=== PATIENT | male | born 1975 | race Caucasian/White ===

== ENCOUNTER → 2017-03-25 | Outpatient (CLI) | payer OTHER ==
--- NOTE | 2017-03-25 09:04 | CT ---
EXAMINATION TYPE: CT lumbar spine w con DATE OF EXAM: 03/25/2017 COMPARISON: 04/26/2015 HISTORY: Lumbar neuritis CT DLP: 560.20 mGycm Automated exposure control for dose reduction was used. CONTRAST: CT scan of the lumbar is performed with IV Contrast, patient injected with 100 ml mL of Omnipaque [address] of the lumbar spine was performed. Bone and soft tissue window settings are submitted as well as coronal and sagittal reconstructions. L1-L2: Normal disc space height. No disc herniation protrusion or central stenosis. No facet joint arthropathy. No evidence for foraminal encroachment. L2-L3: There is a broad-based disc bulge creating mild bilateral neural foraminal narrowing. No spina l canal stenosis. L3-L4: There is a broad-based disc bulge creating mild bilateral neural foraminal narrowing. No spina l canal stenosis. Mild facet arthropathy and ligamentum flavum buckling. L4-L5: There is a right paracentral disc herniation superimposed upon a broad-based disc bulge that e xtends caudally approximately 5 mm, extends into the right lateral recess and into the neural foramen . Additionally cephalad orientation of the superior facet of L5 due to the anterolisthesis impinges u sherine the L4 exiting nerve root on the left and right creating severe bilateral neural foraminal stenos is. L5-S1: Laminectomy defect, spinous process resection, fixation rods, and pedicular screws are again s een at L5-S1 with persistent grade 2 anterolisthesis of L5 on S1 and partial osseous fusion of L5 wit h S1. This results in moderate bilateral neural foraminal narrowing. Spinal canal remains patent seco ndary to the spinous process resection. Sigmoid diverticulosis is incidentally identified without pericolonic fat stranding. IMPRESSION: 1. Right paracentral disc herniation with caudal extrusion of 5 mm and extends into the right lateral recess and neural foramen. This disc herniation in combination with superior L5 facet protrusion int o the neural foramen secondary to the grade 2 anterolisthesis of L5 on S1 both create bilateral sever e neural foraminal narrowing impinging upon the exiting L4 nerve roots. 2. Postsurgical changes of L5-S1 with persistent grade 2 anterolisthesis and partial osseous fusion o f L5 and S1. 3. Sigmoid diverticulosis.
== END | disposition home or self-care (01) ==
LOC: RADCTMAIN 07:46
PROVIDERS: ATTEND Family Medicine
DX: M51.16 Intervertebral disc disorders with radiculopathy, lumbar region (principal); M99.73 Connective tissue and disc stenosis of intervertebral foramina of lumbar region; M43.17 Spondylolisthesis, lumbosacral region; Z98.1 Arthrodesis status
CPT/HCPCS: 72132; Q9967

== ENCOUNTER → 2017-09-25 | Outpatient (CLI) | payer OTHER ==
--- NOTE | 2017-09-25 09:40 | MR ---
MR lumbar spine wo/w con Low back pain, [id number] Gadavist Multiplanar, multiecho imaging of the lumbar spine was obtained without contrast on a 3 Marva magnet. REFERENCE: CT scan of the lumbar spine dated 03/25/2017. FINDINGS: Paraspinal soft tissues are normal. There is a fusion of L5-S1 with a persistent grade 1 bordering on grade 2 antegrade listhesis of L5 o n S1. There has been an interpedicular fusion at L5-S1. Alignment is otherwise normal. Cord signal is normal. The conus ends normally at the level of the superior endplate of L1. At T12-L1, no definite abnormality is seen. At L1-2, there is hypertrophic change and capsulitis within the facets. At L2-3, there is a mild, bilobed disc displacement. Intervertebral foramina are well maintained. The re is mild hypertrophic change and capsulitis within the facets. At L3-4, the intervertebral foramina are reasonably well-maintained. There is hypertrophic change in the facets. There is a bilobed disc displacement. There is mild trefoiling of the thecal sac. L4-5 There is mild, bilateral intervertebral foraminal narrowing, worse on the left than the right. T his hypertrophic change in the facets. There is a diffuse disc displacement. There is moderate centra l canal compromise. There is bilateral lateral recess stenosis. At L5-S1, this level is fused. There is a grade 1, bordering on grade 2 spondylolisthesis L5 on S1. Spacing material has been displaced posteriorly and is abutting the posterior edge of the S1 vertebra l body. It is difficult to assess the intervertebral foramina due to geometric distortion. There appe ars be intervertebral foraminal narrowing on the right and to a lesser extent on the left. There is a bony ridge posteriorly secondary to the spondylolysis and this is projecting into the spinal canal c ausing mild to moderate central canal compromise. IMPRESSION: 1. DIFFUSE FACET ARTHROPATHY. 2. POSTSURGICAL CHANGE. 3. FUSION OF THE L5-S1 LEVEL WITH A PERSISTENT GRADE 1 BORDERING ON GRADE 2 SPONDYLOLISTHESIS OF L5 O N S1. 4. VARYING DEGREES OF CENTRAL CANAL COMPROMISE, MOST MARKED AT L4-5 AND L5-S1. 5. BILATERAL LATERAL RECESS STENOSIS, L4-5.
== END | disposition home or self-care (01) ==
LOC: RADMRIMAIN 08:32
PROVIDERS: ATTEND Orthopaedic Surgery Orthopaedic Surgery of the Spine
DX: M48.061 Spinal stenosis, lumbar region without neurogenic claudication (principal); M43.16 Spondylolisthesis, lumbar region; M46.86 Other specified inflammatory spondylopathies, lumbar region; Z98.1 Arthrodesis status; Z98.890 Other specified postprocedural states
CPT/HCPCS: 72158; A9581

== ENCOUNTER → 2018-12-02 | Outpatient (CLI) | payer OTHER ==
--- NOTE | 2018-12-02 11:13 | XR ---
"EXAMINATION TYPE: XR lumbosacral spine min 4V DATE OF EXAM: 12/02/2018 CLINICAL HISTORY: Low back pain and surgery TECHNIQUE: Frontal, lateral, and oblique images of the lumbar spine are obtained. COMPARISON: 05/11/2011 x-ray, CT dated 03/17/2017, and MRI lumbar spine dated 09/25/2017. FINDINGS: Pedicular screws again traverse L5-S1. There is persistent grade 2 anterolisthesis, surgica lly fixated. Multilevel facet arthropathy is seen. There is a new compression deformity in comparison to the MRI dated 09/25/2017, the most recent examination at this institution. As has vertebral body h eight loss of approximately 25% without radiographic evidence of retropulsion. No additional compress ion deformity is seen in the lumbar spine. At least mild neural foraminal narrowing is seen at L4-L5 bilaterally but suspected to be moderate. No dilated bowel in the overlying abdomen. IMPRESSION: 1. There is an age-indeterminate compression deformity of the L1 vertebral body with vertebral body h eight loss of approximately 25%. No radiographic retropulsion. This is new from the most recent exam of 09/25/2017. 2. Degenerative disc disease of the lumbar spine, surgical fixation of an anterolisthesis of L5 on S1 that is chronic, and at least mild neural foraminal narrowing but suspected moderate at L4-L5 as see n on prior exams. A Yellow level critical message alert has been initiated for Grabiel Jean MD via the [employer] 36 0 | Critical Results System on 12/02/2018 11:11 AM. This message alert has been sent to Grabiel Jean MD via the preferences provided by the clinician for the receipt of Radiology Critical Findings. [facility] ID [id number]."
== END | disposition home or self-care (01) ==
LOC: RADXRMAIN 09:50
PROVIDERS: ATTEND Family Medicine
DX: M48.061 Spinal stenosis, lumbar region without neurogenic claudication (principal); M43.17 Spondylolisthesis, lumbosacral region; M51.37 Other intervertebral disc degeneration, lumbosacral region
CPT/HCPCS: 72110

== ENCOUNTER → 2018-12-12 | Outpatient (CLI) | payer OTHER ==
--- NOTE | 2018-12-13 10:03 | BD ---
EXAMINATION TYPE: Axial Bone Density DATE OF EXAM: 12/12/2018 COMPARISON: NONE CLINICAL HISTORY: LUMBAR FX. Height: 6'1 1/2 Weight: 179 FRAX RISK QUESTIONS: History of Fracture in Adulthood: Y Secondary Osteoporosis: 1Current Tobacco Use: Y RISK FACTORS HISTORY OF: Spine Fracture: lumbar When: 2008 Surgery to Spine/): lumbar When: 2008 MEDICATIONS: Additional Medications: pain Additional History: EXAM MEASUREMENTS: Bone mineral density about the R hip (g/cm2): 0.840 Bone mineral density about the L hip (g/cm2): 0.919 T Score values are as follows: -----R Neck: -1.4 -----L Neck: -0.9 -----R Total: -1.5 -----L Total: -1.1 Bone mineral density about the L Wrist (g/cm2): 0.802 T Score values are as follows: -----Dist. R+U: -0.2 -----Prox. R+U: 1.0 -----Radius total: 0.7 IMPRESSION: Osteopenia (T Score between -2.5 and -1). There is slightly increased risk of fracture and the patient may be considered for treatment. Re-Screen 2-5 years. NOTE: T-SCORE=SD OF THE YOUNG ADULT MEAN.
== END | disposition home or self-care (01) ==
LOC: RADBDWWP 14:59
PROVIDERS: ATTEND Family Medicine
DX: M85.80 Other specified disorders of bone density and structure, unspecified site (principal)
CPT/HCPCS: 77080

== ENCOUNTER → 2020-08-09 | Outpatient (CLI) | payer OTHER ==
--- NOTE | 2020-08-09 10:53 | XR ---
EXAMINATION TYPE: XR knee complete LT DATE OF EXAM: 08/09/2020 CLINICAL HISTORY: pain TECHNIQUE: Three views of the left knee are obtained. COMPARISON: None. FINDINGS: There is no acute fracture/dislocation. The tri-compartment joint spaces appear within no rmal limits. The overlying soft tissue appears unremarkable. IMPRESSION: There is no acute fracture or dislocation ICD 10 NO FRACTURE, INITIAL EVALUATION
--- NOTE | 2020-08-09 10:56 | XR ---
EXAMINATION TYPE: XR humerus RT DATE OF EXAM: 08/09/2020 CLINICAL HISTORY: pain COMPARISON: NONE TECHNIQUE: Frontal and lateral images of the right humerus are obtained. FINDINGS: There is fracture of the distal clavicle of uncertain etiology. Coracoid is fractured altho ugh partially imaged. Distal clavicle appears slightly elevated relative to the acromion which may re flect a degree of AC joint separation. Humerus is free of acute fracture. Fixation plate and screws a re in place mid humeral diaphysis. IMPRESSION: Fractures of uncertain age as noted.
--- NOTE | 2020-08-09 12:24 | XR ---
EXAMINATION TYPE: XR lumbar spine 2 or 3V DATE OF EXAM: 08/09/2020 CLINICAL HISTORY: pain TECHNIQUE: Three views of the lumbar spine are submitted. COMPARISON: 12/02/2018 FINDINGS: Postoperative changes are noted of fusion at L5-S1. Persistent anterolisthesis L4 and L5 of 3.4 mm. P edicular screws demonstrate a similar appearance. No evidence for compression fracture. IMPRESSION: Postop changes noted.
== END | disposition home or self-care (01) ==
LOC: LABWHC1 10:16
PROVIDERS: ATTEND Family Medicine
DX: S42.031A Displaced fracture of lateral end of right clavicle, initial encounter for closed fracture (principal); G89.21 Chronic pain due to trauma; Z98.1 Arthrodesis status
CPT/HCPCS: 72100

== ENCOUNTER 2021-04-17 11:45 | Inpatient (IN) | payer OTHER ==
[2021-04-17] MEDS ORDERED: KETOROLAC 15 MG/ML 1 ML VIAL IVP STA (12:23)
--- NOTE | 2021-04-17 12:27 | ED ---
General Adult HPI - General Chief complaint: Chest Pain Stated complaint: chest & shoulder pain Time Seen by Provider: 04/17/21 11:55 Source: patient, RN notes reviewed, old records reviewed Mode of arrival: ambulatory Limitations: no limitations - History of Present Illness Initial comments: This is a 45-year-old male with past medical history significant for high cholesterol and smoking. Patient comes in today complaining of left-sided sharp chest pain in the lower left chest in the upper left chest. Patient states it hurts to breathe patient not short of breath per patient denies any cough. He states had a low-grade fever recently. Patient denies any drug or alcohol use. Patient denies any lightheadedness or dizziness. Patient states the pain started yesterday morning when he woke up. Patient states any kind of deep breathing movement or twisting makes the pain worse. Patient denies any swelling to the calves or leg tenderness. Patient denies abdominal pain patient denies nausea vomiting diarrhea. - Related Data Allergies Allergy/AdvReac Type Severity Reaction Status Date / Time Penicillins Allergy Anaphylaxis Verified 04/17/21 11:54 Review of Systems ROS Statement: Those systems with pertinent positive or pertinent negative responses have been documented in the HPI. ROS Other: All systems not noted in ROS Statement are negative. Past Medical History Additional Past Medical History / Comment(s): back issues History of Any Multi-Drug Resistant Organisms: None Reported Past Surgical History: Back Surgery, Orthopedic Surgery Additional Past Surgical History / Comment(s): L knee Past Psychological History: No Psychological Hx Reported Smoking Status: Former smoker Past Alcohol Use History: None Reported Past Drug Use History: None Reported General Exam - General Exam Comments Initial Comments: GENERAL: Patient is well-developed and well-nourished. Patient is nontoxic and well- hydrated and is in mild distress. ENT: Neck is soft and supple. No significant lymphadenopathy is noted. Oropharynx is clear. Moist mucous membranes. Neck has full range of motion without eliciting any pain. EYES: The sclera were anicteric and conjunctiva were pink and moist. Extraocular movements were intact and pupils were equal round and reactive to light. Eyelids were unremarkable. PULMONARY: Unlabored respirations. Good breath sounds bilaterally. No audible rales rhonchi or wheezing was noted. CARDIOVASCULAR: There is a regular rate and rhythm without any murmurs gallops or rubs. ABDOMEN: Soft and nontender with normal bowel sounds. SKIN: Skin is clear with no lesions or rashes and otherwise unremarkable. NEUROLOGIC: Patient is alert and oriented x3. Cranial nerves II through XII are grossly intact. Motor and sensory are also intact. Normal speech, volume and content. Symmetrical smile. MUSCULOSKELETAL: Normal extremities with adequate strength and full range of motion. No lower extremity swelling or edema. No calf tenderness. LYMPHATICS: No significant lymphadenopathy is noted PSYCHIATRIC: Normal psychiatric evaluation. Limitations: no limitations Course Vital Signs 04/17/21 04/17/21 11:54 13:00 Temperature 98.8 F Pulse Rate 98 85 Respiratory 18 20 Rate Blood Pressure 109/66 117/68 O2 Sat by Pulse 98 96 Oximetry Medical Decision Making - Medical Decision Making EKG shows normal sinus rhythm at 90 bpm MO interval is on a 44 104 QT Interval 350 QTC Is 420. Patient's EKG Shows No ST Segment Elevation. However There Is Some Slight ST Segment Depression in V3 through V6 Chest x-ray shows a left lower lobe infiltrate and a probable right lower lobe infiltrate. Patient also 35,000 white count. I started the patient on Levaquin because he has an ALLERGY to penicillin. Patient did receive a liter of fluid in the emergency department. Patient's drug screen came up positive for opiates and methamphetamine and cocaine. Pat digna continues to deny it. It. I spoke with Dr. Leavitt he agreed to admit the patient admitted the patient wrote admitting orders. - Lab Data Result diagrams: 04/17/21 12:39 04/17/21 12:39 Lab Results 04/17/21 04/17/21 04/17/21 Range/Units 12:39 12:39 12:39 WBC 35.2 H (3.8-10.6) k/uL RBC 4.18 L (4.30-5.90) m/uL Hgb 13.2 (13.0-17.5) gm/dL Hct 41.1 (39.0-53.0) % MCV 98.3 (80.0-100.0) fL MCH 31.6 (25.0-35.0) pg MCHC 32.1 (31.0-37.0) g/dL RDW 12.6 (11.5-15.5) % Plt Count 632 H (150-450) k/uL MPV 7.2 Sodium 136 L (137-145) mmol/L Potassium 3.0 L (3.5-5.1) mmol/L Chloride 103 (98-107) mmol/L Carbon Dioxide 21 L (22-30) mmol/L Anion Gap 12 mmol/L BUN 7 L (9-20) mg/dL Creatinine 0.68 (0.66-1.25) mg/dL Est GFR (CKD-EPI)AfAm >90 (>60 ml/min/1.73 sqM) Est GFR (CKD-EPI)NonAf >90 (>60 ml/min/1.73 sqM) Glucose 112 H (74-99) mg/dL Calcium 9.2 (8.4-10.2) mg/dL Magnesium 1.6 (1.6-2.3) mg/dL Total Bilirubin 0.8 (0.2-1.3) mg/dL AST 16 L (17-59) U/L ALT 30 (4-49) U/L Alkaline Phosphatase 161 H (38-126) U/L Troponin I <0.012 (0.000-0.034) ng/mL Total Protein 7.0 (6.3-8.2) g/dL Albumin 3.5 (3.5-5.0) g/dL Urine Opiates Screen (NotDetected) Ur Oxycodone Screen (NotDetected) Urine Methadone Screen (NotDetected) Ur Propoxyphene Screen (NotDetected) Ur Barbiturates Screen (NotDetected) U Tricyclic Antidepress (NotDetected) Ur Phencyclidine Scrn (NotDetected) Ur Amphetamines Screen (NotDetected) U Methamphetamines Scrn (NotDetected) U Benzodiazepines Scrn (NotDetected) Urine Cocaine Screen (NotDetected) U Marijuana (THC) Screen (NotDetected) Coronavirus (PCR) (Not Detectd) 04/17/21 04/17/21 Range/Units 12:52 12:52 WBC (3.8-10.6) k/uL RBC (4.30-5.90) m/uL Hgb (13.0-17.5) gm/dL Hct (39.0-53.0) % MCV (80.0-100.0) fL MCH (25.0-35.0) pg MCHC (31.0-37.0) g/dL RDW (11.5-15.5) % Plt Count (150-450) k/uL MPV Sodium (137-145) mmol/L Potassium (3.5-5.1) mmol/L Chloride (98-107) mmol/L Carbon Dioxide (22-30) mmol/L Anion Gap mmol/L BUN (9-20) mg/dL Creatinine (0.66-1.25) mg/dL Est GFR (CKD-EPI)AfAm (>60 ml/min/1.73 sqM) Est GFR (CKD-EPI)NonAf (>60 ml/min/1.73 sqM) Glucose (74-99) mg/dL Calcium (8.4-10.2) mg/dL Magnesium (1.6-2.3) mg/dL Total Bilirubin (0.2-1.3) mg/dL AST (17-59) U/L ALT (4-49) U/L Alkaline Phosphatase (38-126) U/L Troponin I (0.000-0.034) ng/mL Total Protein (6.3-8.2) g/dL Albumin (3.5-5.0) g/dL Urine Opiates Screen Detected H (NotDetected) Ur Oxycodone Screen Detected H (NotDetected) Urine Methadone Screen Not Detected (NotDetected) Ur Propoxyphene Screen Not Detected (NotDetected) Ur Barbiturates Screen Not Detected (NotDetected) U Tricyclic Antidepress Detected H (NotDetected) Ur Phencyclidine Scrn Not Detected (NotDetected) Ur Amphetamines Screen Not Detected (NotDetected) U Methamphetamines Scrn Detected H (NotDetected) U Benzodiazepines Scrn Not Detected (NotDetected) Urine Cocaine Screen Detected H (NotDetected) U Marijuana (THC) Screen Detected H (NotDetected) Coronavirus (PCR) Not Detected (Not Detectd) Disposition Clinical Impression: Pneumonia, Cocaine abuse, Methamphetamine abuse Disposition: ADMITTED IP TO THIS HOSP Referrals: Grabiel Jean MD [Primary Care Provider] - 1-2 days Time of Disposition: 13:59
[2021-04-17 13:08] LABS: Basophils # (A) 0.1 k/uL (0-0.2); Basophils % (A) 0 %; Eosinophils # (A) 0.3 k/uL (0-0.7); Eosinophils % (A) 1 %; HCT 41.1 % (39.0-53.0); HGB 13.2 gm/dL (13.0-17.5); Lymphocytes # (A) 1.2 k/uL (1.0-4.8); Lymphocytes % (A) 3 %; MCH 31.6 pg (25.0-35.0); MCHC 32.1 g/dL (31.0-37.0); MCV 98.3 fL (80.0-100.0); Mean Platelet Volume 7.2; Monocytes # (A) 2.8 k/uL (0-1.0); Monocytes % (A) 8 %; Neutrophils # (A) 30.5 k/uL (1.3-7.7); Neutrophils % (A) 87 %; Platelet Count 632 k/uL (150-450); RBC 4.18 m/uL (4.30-5.90); RDW 12.6 % (11.5-15.5); WBC 35.2 k/uL (3.8-10.6)
[2021-04-17] MEDS ORDERED: LEVOFLOXACIN 750MG-D5W PMX 750 MG in DEXTROSE/WATER 1 150ML.BAG IVPB STA (13:12)
[2021-04-17 13:23] LABS: ALT 30 U/L (4-49); AST 16 U/L (17-59); African American GFR (CKD) >90 (>60 ml/min/1.73 sqM); Albumin 3.5 g/dL (3.5-5.0); Alkaline Phosphatase 161 U/L (38-126); Anion Gap 12 mmol/L; Blood Urea Nitrogen 7 mg/dL (9-20); Calcium 9.2 mg/dL (8.4-10.2); Carbon Dioxide 21 mmol/L (22-30); Chloride 103 mmol/L (98-107); Glucose 112 mg/dL (74-99); INR 1.1 (<1.2); Magnesium 1.6 mg/dL (1.6-2.3); Non-African American GFR(CKD) >90 (>60 ml/min/1.73 sqM); Sodium 136 mmol/L (137-145); Total Bilirubin 0.8 mg/dL (0.2-1.3)
[2021-04-17 13:24] LABS: Partial Thromboplastin Time 27.8 sec (22.0-30.0); Prothrombin Time 11.2 sec (9.0-12.0)
--- NOTE | 2021-04-17 13:27 | XR ---
EXAMINATION TYPE: XR chest 2V DATE OF EXAM: 04/17/2021 COMPARISON: 11/04/2010 HISTORY: Chest pain TECHNIQUE: Frontal and lateral views of the chest are obtained. FINDINGS: There is no focal air space opacity. Left lower lobe infiltrate and effusion noted. Mild patchy density right lower lobe as well. The cardiac silhouette size is within normal limits. The osseous structures are grossly intact. IMPRESSION: 1. Left lower lobe infiltrate and effusion noted. Mild patchy density right lower lobe as well.
[2021-04-17] MEDS ORDERED: SODIUM CHLORIDE 0.9% 1,000 ML IV ONE (13:28)
[2021-04-17] MEDS ORDERED: POTASSIUM CHLORIDE ER 20 MEQ TAB.ER PO STA (13:29)
[2021-04-17 13:48] LABS: Amphetamine Screen,Urine Not Detected (NotDetected); Barbiturate Screen,Urine Not Detected (NotDetected); Benzodiazepines Screen,Urine Not Detected (NotDetected); Cocaine Screen,Urine Detected (NotDetected); Methadone Screen, Urine Not Detected (NotDetected); Opiate Screen,Urine Detected (NotDetected); Oxycodone Screen, Urine Detected (NotDetected); Phencyclidine Screen,Urine Not Detected (NotDetected); Tricyclic Antidepressant,Urine Detected (NotDetected); Urn Cannabinoid Scrn Detected (NotDetected)
[2021-04-17] MEDS ORDERED: PNEUMONIA PROTOCOL UTILIZED 1 EACH MISC PO PRN (14:00)
[2021-04-17 14:03] LABS: Hypersegmented Neutrophils Present
[2021-04-17] MEDS: IPRATROPIUM-ALBUTEROL 3 ML NEB INHALATION SCH ×2 (15:15→19:01)
--- NOTE | 2021-04-17 15:20 | CT ---
EXAMINATION TYPE: CT chest angio for PE DATE OF EXAM: 04/17/2021 COMPARISON: None HISTORY: Left sided chest pain with Shortness of breath CT DLP: 379.6 mGycm CONTRAST: CT chest with contrast and 3D reconstruction with MIP imaging is performed with IV Contrast, patient injected with 100 mL of Isovue 300. Contrast-enhanced CT of the chest was performed through the course of the pulmonary arteries with michael g and mediastinal window settings submitted. 3D reconstruction with MIP imaging was also performed. PULMONARY ARTERIES: The pulmonary arteries and their major tributaries are patent. I do not see timbo dence for sizable filling defect to suggest pulmonary embolic process. LUNGS: Moderate left-sided pleural effusions with areas of loculation. Basilar compressive atelectasi s and/or infiltrates bilaterally left greater than right. MEDIASTINUM: Thoracic aorta is of normal caliber. The heart is not enlarged. No evidence for mediast inal mass. No mediastinal lymph nodes greater than 1cm. HILAR STRUCTURES: No evidence for mass. No hilar lymph nodes greater than 1 cm. UPPER ABDOMEN: No significant abnormality is seen. IMPRESSION: 1. No evidence for Pulmonary embolism at this time.
[2021-04-17] MEDS ORDERED: ALBUTEROL NEBULIZED 2.5 MG/3 ML INHALATION PRN (16:00)
[2021-04-17] MEDS ORDERED: IBUPROFEN 800 MG TAB PO PRN (19:08)
[2021-04-17] MEDS ORDERED: LACTULOSE 20 GM/30 ML CUP PO PRN (19:09)
[2021-04-17] MEDS ORDERED: LORazepam 2 MG/ML INJ IV PRN (19:09)
[2021-04-17] MEDS ORDERED: MAG HYDROX/AL HYDROX/SIMETH 30 ML CUP PO PRN (19:09)
[2021-04-17] MEDS ORDERED: ACETAMINOPHEN TAB 325 MG TAB PO PRN (19:09)
[2021-04-17] MEDS ORDERED: MELATONIN 3 MG TABLET PO PRN (19:09)
[2021-04-17] MEDS ORDERED: ONDANSETRON 4 MG/2 ML VIAL IVP PRN (19:09)
[2021-04-17] MEDS ORDERED: NALOXONE 0.4 MG/ML 1 ML VIAL IV PRN (19:09)
[2021-04-17] MEDS ORDERED: MAGNESIUM HYDROXIDE 2,400 MG/10 ML CUP PO PRN (19:09)
[2021-04-17] MEDS: oxyCODONE-APAP 10-325MG 1 EACH TAB PO PRN (19:37)
[2021-04-17] MEDS ORDERED: NAPROXEN 250 MG TAB PO STA (21:11)
[2021-04-17] MEDS: CYCLOBENZAPRINE 10 MG TAB PO SCH (22:00)
[2021-04-17] MEDS: NICOTINE 21MG/24HR PATCH TRANSDERM SCH (22:00)
[2021-04-17] MEDS: ENOXAPARIN 40 MG/0.4 ML SYRINGE SQ SCH (22:00)
--- NOTE | 2021-04-17 23:59 | P.HPIM ---
History of Present Illness H&P Date: 04/17/21 Chief Complaint: Left chest sharp pain This is a 45-year-old patient who follows with Grabiel Jean. Patient is smoker. Patient does take Percocet Motrin and Flexeril for low back pain is at prior surgery. Patient now presents with sharp left-sided pain. Which is worse with deep breathing and activity. Is unable to take a deep breath and catches his breath. Denied any obvious fever and chills. No dizziness, lightheadedness no perspiration. He stated that last Wednesday taken some cocaine. Presented to ER. After going to see his family doctor in the office. Next x-ray showed significant pneumonia. Started on IV Levaquin. Patient has penicillin ALLERGY. The pain is on the pleuritic in nature. Review of systems: GEN.: Tired EYES: None HEENT: None NECK: None RESPIRATORY: As above CARDIOVASCULAR: None GASTROINTESTINAL: None GENITOURINARY: None MUSCULOSKELETAL: Chronic low back pain LYMPHATICS: None HEMATOLOGICAL: None PSYCHIATRY: None NEUROLOGICAL: None Past medical history to include: Chronic low back pain from prior surgery. Smoker muscle spasm Social history: . Smokes a pack a day for close to 24 years. Alcohol occasionally. Occasional recreational drug. Family history: Reviewed, noncontributory to presentation Physical examination: VITAL SIGNS: 98, 92, 20, 112/60, 95% room air GENERAL: BMI 25, sitting up in bed awake not in distress. EYES: Pupils equal. Conjunctiva normal. HEENT: External appearance of nose and ears normal, oral cavity grossly normal. NECK: JVD not raised; masses not palpable. HEART: First and second heart sounds are normal; no edema. LUNGS: Respiratory rate increased; decreased breath sounds or wheezing and basal crackles. ABDOMEN: Soft, nontender, liver spleen not palpable, no masses palpable. PSYCH: Alert and oriented x3; mood and affect normal. NEUROLOGICAL: Cranial nerves grossly intact; no facial asymmetry, power and sensation grossly intact. LYMPHATICS: No lymph nodes palpable in the axilla and neck INVESTIGATIONS, reviewed in the clinical context: WBC 35.2 hemoglobin 13.2 platelets 632 increased neutrophils sodium 136 potassium 3 BUN 7 creatinine 0.68 Urine drug screen positive for opiates, oxycodone, tricyclic antidepressants, and amphetamines, cocaine, marijuana Coronavirus [PCR]: Not detected EKG tracing personally reviewed by -normal sinus rhythm, ST-T wave changes rate 90 Chest x-ray film personally reviewed by me-left lower lobe infiltrate. Possible right-sided infiltrate to. Moderate left-sided pleural effusion. The areas of loculation. Assessment and plan: -Left-sided pneumonia possible multilobar, suspect gram-negative organism IV Levaquin. -Left-sided severe pleuritic pain. Naproxen scheduled -Left-sided parapneumonic effusion. Consult pulmonary. -COPD in a current smoker DuoNeb. IV Solu-Medrol -Chronic nicotine dependence, cigarettes smoker Nicotine patch IV Levaquin. DuoNeb. IV Solu-Medrol. Naproxen scheduled. Consult pulmonary. Given the complexity and severity of patient's condition expect the patient to be in the hospital at least for 2 overnights Past Medical History Additional Past Medical History / Comment(s): back issues History of Any Multi-Drug Resistant Organisms: None Reported Past Surgical History: Back Surgery, Orthopedic Surgery Additional Past Surgical History / Comment(s): L knee Past Psychological History: No Psychological Hx Reported Smoking Status: Former smoker Past Alcohol Use History: None Reported Past Drug Use History: None Reported Medications and Allergies Home Medications Medication Instructions Recorded Confirmed Type Cyclobenzaprine [Flexeril] 10 mg PO BID 04/17/21 04/17/21 History Ibuprofen [Motrin] 800 mg PO DAILY PRN 04/17/21 04/17/21 History oxyCODONE HCL/ACETAMINOPHEN 1 tab PO QID PRN 04/17/21 04/17/21 History [Percocet 10-325 mg] Allergies Allergy/AdvReac Type Severity Reaction Status Date / Time Penicillins Allergy Anaphylaxis Verified 04/17/21 14:40 Physical Exam Vitals: Vital Signs Temp Pulse Resp BP Pulse Ox 04/17/21 19:40 98.0 F 92 20 112/60 95 04/17/21 16:47 80 20 112/68 95 04/17/21 14:11 87 20 123/71 95 04/17/21 13:00 85 20 117/68 96 04/17/21 11:54 98.8 F 98 18 109/66 98 Intake and Output 04/17/21 04/17/21 04/18/21 14:59 22:59 06:59 Other: Weight 88.451 kg Results CBC & Chem 7: 04/17/21 12:39 10/21/21 12:39 Labs: Abnormal Lab Results - Last 24 Hours (Table) 04/17/21 04/17/21 04/17/21 Range/Units 12:39 12:39 12:39 WBC 35.2 H (3.8-10.6) k/uL RBC 4.18 L (4.30-5.90) m/uL Plt Count 632 H (150-450) k/uL Neutrophils # 30.5 H (1.3-7.7) k/uL Monocytes # 2.8 H (0-1.0) k/uL D-Dimer 0.81 H (<0.60) mg/L FEU Sodium 136 L (137-145) mmol/L Potassium 3.0 L (3.5-5.1) mmol/L Carbon Dioxide 21 L (22-30) mmol/L BUN 7 L (9-20) mg/dL Glucose 112 H (74-99) mg/dL AST 16 L (17-59) U/L Alkaline Phosphatase 161 H (38-126) U/L Urine Opiates Screen (NotDetected) Ur Oxycodone Screen (NotDetected) U Tricyclic Antidepress (NotDetected) U Methamphetamines Scrn (NotDetected) Urine Cocaine Screen (NotDetected) U Marijuana (THC) Screen (NotDetected) 04/17/21 Range/Units 12:52 WBC (3.8-10.6) k/uL RBC (4.30-5.90) m/uL Plt Count (150-450) k/uL Neutrophils # (1.3-7.7) k/uL Monocytes # (0-1.0) k/uL D-Dimer (<0.60) mg/L FEU Sodium (137-145) mmol/L Potassium (3.5-5.1) mmol/L Carbon Dioxide (22-30) mmol/L BUN (9-20) mg/dL Glucose (74-99) mg/dL AST (17-59) U/L Alkaline Phosphatase (38-126) U/L Urine Opiates Screen Detected H (NotDetected) Ur Oxycodone Screen Detected H (NotDetected) U Tricyclic Antidepress Detected H (NotDetected) U Methamphetamines Scrn Detected H (NotDetected) Urine Cocaine Screen Detected H (NotDetected) U Marijuana (THC) Screen Detected H (NotDetected)
[2021-04-18] MEDS: methylPREDNISolone SOD SUCCI 40 MG/ML 1 ML VIAL IV SCH ×3 (01:03→17:10)
[2021-04-18] MEDS: oxyCODONE-APAP 10-325MG 1 EACH TAB PO PRN ×4 (01:03→22:34)
--- NOTE | 2021-04-18 07:02 | XR ---
EXAMINATION TYPE: XR chest 2V DATE OF EXAM: 04/18/2021 COMPARISON: 04/17/2021 HISTORY: Pneumonia TECHNIQUE: Frontal and lateral views of the chest are obtained. FINDINGS: Left greater than right underlying pneumonia and/or atelectasis. Suspect loculated pleural effusion a t the left lung base. The cardiac silhouette size is within normal limits. The osseous structures are grossly intact. IMPRESSION: 1. Left greater than right underlying pneumonia and/or atelectasis. Suspect loculated pleural effusi on at the left lung base.
[2021-04-18] MEDS: NICOTINE 21MG/24HR PATCH TRANSDERM SCH (08:03)
[2021-04-18] MEDS: NAPROXEN 250 MG TAB PO SCH ×4 (08:03→22:36)
[2021-04-18] MEDS: ENOXAPARIN 40 MG/0.4 ML SYRINGE SQ SCH (08:03)
[2021-04-18] MEDS: CYCLOBENZAPRINE 10 MG TAB PO SCH ×2 (08:04→22:35)
[2021-04-18] MEDS: IPRATROPIUM-ALBUTEROL 3 ML NEB INHALATION SCH ×4 (08:30→19:58)
[2021-04-18] MEDS ORDERED: LEVOFLOXACIN 750MG-D5W PMX 750 MG in DEXTROSE/WATER 1 150ML.BAG IVPB SCH ×2 (09:00→14:00)
--- NOTE | 2021-04-18 12:20 | P.CNPUL ---
History of Present Illness Consult date: 04/18/21 Reason for consult: dyspnea Chief complaint: Chest pain and shortness of breath History of present illness: Patient is a 45-year-old with extensive history of smoking and nicotine abuse, patient came into the hospital with sudden onset of chest pain shortness of breath denies any cough or sputum production patient has been having low-grade fever, no history of alcohol consumption, due to severity of pain and decided came into the hospital for further evaluation, patient does smoke one to one and half pack per day. Recently, workup [place] chest x-ray revealed presence of left lower lobe infiltrate and some developing pneumonia on right lower lobe noted as well, computed tomography scan of the chest negative for pulmonary embolism however left-sided pleural effusion seen small with bilateral atelectasis, follow-up chest x-ray continued show a loculated effusion white cell count 35,000 Review of Systems All systems: negative Past Medical History Additional Past Medical History / Comment(s): back issues- fusion of L5-S1. -2015 History of Any Multi-Drug Resistant Organisms: None Reported Past Surgical History: Back Surgery, Orthopedic Surgery Additional Past Surgical History / Comment(s): L knee. R arm Surgery Past Anesthesia/Blood Transfusion Reactions: No Reported Reaction Past Psychological History: No Psychological Hx Reported Smoking Status: Former smoker Past Alcohol Use History: None Reported Past Drug Use History: Cocaine Additional Drug Use History / Comment(s): Pt states he went to a republican last weekend and did 3 lines but usually doesn't do drugs. Medications and Allergies Home Medications Medication Instructions Recorded Confirmed Type Cyclobenzaprine [Flexeril] 10 mg PO BID 04/17/21 04/17/21 History Ibuprofen [Motrin] 800 mg PO DAILY PRN 04/17/21 04/17/21 History oxyCODONE HCL/ACETAMINOPHEN 1 tab PO QID PRN 04/17/21 04/17/21 History [Percocet 10-325 mg] Allergies Allergy/AdvReac Type Severity Reaction Status Date / Time Penicillins Allergy Anaphylaxis Verified 04/17/21 14:40 Physical Exam Vitals: Vital Signs Temp Pulse Pulse Resp BP BP Pulse Ox 04/18/21 08:04 76 18 04/18/21 08:00 97.5 F L 76 18 120/78 92 L 04/18/21 02:00 98.0 F 77 19 123/74 93 L 04/18/21 00:30 77 19 04/17/21 19:40 98.0 F 92 20 112/60 95 04/17/21 16:47 80 20 112/68 95 04/17/21 14:11 87 20 123/71 95 04/17/21 13:00 85 20 117/68 96 Intake and Output 04/17/21 04/18/21 04/18/21 22:59 06:59 14:59 Other: Voiding Method Toilet Toilet # Voids 1 Weight 88.451 kg - Constitutional General appearance: average body habitus, cooperative, disheveled - EENT Eyes: abnormal pupil, EOMI Ears: bilateral: normal - Neck Neck: normal ROM Carotids: bilateral: upstroke normal Thyroid: bilateral: normal size - Respiratory Respiratory: bilateral: diminished - Cardiovascular Rhythm: regular Heart sounds: normal: S1, S2 - Gastrointestinal General gastrointestinal: decreased bowel sounds, soft - Neurologic Neurologic: CNII-XII intact - Musculoskeletal Musculoskeletal: gait normal, generalized weakness, strength equal bilaterally - Psychiatric Psychiatric: A&O x's 3, appropriate affect, intact judgment & insight Results - Laboratory Findings CBC and BMP: 04/17/21 12:39 04/17/21 12:39 PT/INR, D-dimer PT 11.2 sec (9.0-12.0) 04/17/21 12:39 INR 1.1 (<1.2) 04/17/21 12:39 D-Dimer 0.81 mg/L FEU (<0.60) H 04/17/21 12:39 Abnormal lab findings: Abnormal Labs 04/17/21 04/17/21 04/17/21 12:39 12:39 12:39 WBC 35.2 H RBC 4.18 L Plt Count 632 H Neutrophils # 30.5 H Monocytes # 2.8 H D-Dimer 0.81 H Sodium 136 L Potassium 3.0 L Carbon Dioxide 21 L BUN 7 L Glucose 112 H AST 16 L Alkaline Phosphatase 161 H Urine Opiates Screen Ur Oxycodone Screen U Tricyclic Antidepress U Methamphetamines Scrn Urine Cocaine Screen U Marijuana (THC) Screen 04/17/21 12:52 WBC RBC Plt Count Neutrophils # Monocytes # D-Dimer Sodium Potassium Carbon Dioxide BUN Glucose AST Alkaline Phosphatase Urine Opiates Screen Detected H Ur Oxycodone Screen Detected H U Tricyclic Antidepress Detected H U Methamphetamines Scrn Detected H Urine Cocaine Screen Detected H U Marijuana (THC) Screen Detected H - Diagnostic Findings Chest x-ray: report reviewed, image reviewed CT scan - chest: report reviewed, image reviewed (Finding as noted above) Assessment and Plan Assessment: Empyema left lung Left-sided pneumonia COPD Shortness of breath and chest pain due to above Plan: Continue antibiotics IV Consult cardiothoracic surgery for evaluation thoracotomy on the left side
--- NOTE | 2021-04-18 16:29 | P.PN ---
Progress Note - Text Progress Note Date: 04/18/21 Chief Complaint: Left chest sharp pain This is a 45-year-old patient who follows with Grabiel Jean. Patient is smoker. Patient does take Percocet Motrin and Flexeril for low back pain is at prior surgery. Patient now presents with sharp left-sided pain. Which is worse with deep breathing and activity. Is unable to take a deep breath and catches his breath. Denied any obvious fever and chills. No dizziness, lightheadedness no perspiration. He stated that last Wednesday taken some cocaine. Presented to ER. After going to see his family doctor in the office. Chest x-ray showed significant pneumonia. Started on IV Levaquin. Patient has penicillin ALLERGY. The pain is on the pleuritic in nature. CT chest showing empyema. April 18: Sitting up in bed. Some less short of breath. Some decrease in pleuritic chest pain. On IV Levaquin. Naproxen. Oral intake better. Discussed with Dr. Mora from pulmonary. Cardiothoracic surgery consulted. Review of systems: Was done for constitutional, cardiovascular, GI, pulmonary. relevant finding as above Active Medications Acetaminophen (Acetaminophen Tab 325 Mg Tab) 650 mg PO Q6HR PRN PRN Reason: Mild Pain or Fever > 100.5 Al Hydroxide/Mg Hydroxide (Mag Hydrox/Al Hydrox/Simeth 30 Ml Cup) 15 ml PO Q6HR PRN PRN Reason: Indigestion Albuterol Sulfate (Albuterol Nebulized 2.5 Mg/3 Ml) 2.5 mg INHALATION RT-QID PRN PRN Reason: Shortness Of Breath Albuterol/Ipratropium (Ipratropium-Albuterol 3 Ml Neb) 3 ml INHALATION RT-QID [facility] Last Admin: 04/18/21 15:03 Dose: Not Given Documented by: Calcium Carbonate/Glycine (Calcium Carbonate 500 Mg Chewable) 1,000 mg PO Q4HR PRN PRN Reason: Dyspepsia Cyclobenzaprine HCl (Cyclobenzaprine 10 Mg Tab) 10 mg PO BID [facility] Last Admin: 04/18/21 08:04 Dose: 10 mg Documented by: Enoxaparin Sodium (Enoxaparin 40 Mg/0.4 Ml Syringe) 40 mg SQ DAILY [facility] Last Admin: 04/18/21 08:03 Dose: 40 mg Documented by: Levofloxacin 750 mg/ IV (Solution) 150 mls @ 100 mls/hr IVPB Q24H [facility] Last Admin: 04/18/21 13:52 Dose: 100 mls/hr Documented by: Cefepime HCl 2 gm/ Sodium (Chloride) 100 mls @ 25 mls/hr IVPB Q8HR [facility] Alteplase, Recombinant 10 mg/ (Sodium Chloride) 50 mls @ 500 mls/hr IRRIGATION ONCE ONE Stop: 04/18/21 16:50 Dornase Gallo 5 mg/ Sodium (Chloride) 55 mls @ 550 mls/hr IRRIGATION ONCE ONE Stop: 04/18/21 16:50 Lactulose (Lactulose 20 Gm/30 Ml Cup) 20 gm PO DAILY PRN PRN Reason: Constipation Lorazepam (Lorazepam 2 Mg/Ml Inj) 0.5 mg IV Q6HR PRN PRN Reason: Anxiety Magnesium Hydroxide (Magnesium Hydroxide 2,400 Mg/10 Ml Cup) 2,400 mg PO DAILY PRN PRN Reason: Constipation Melatonin (Melatonin 3 Mg Tablet) 3 mg PO HS PRN PRN Reason: Insomnia Methylprednisolone Sodium Succinate (Methylprednisolone Sod Succi 40 Mg/Ml 1 Ml Vial) 40 mg IV Q8HR [facility] Last Admin: 04/18/21 08:03 Dose: 40 mg Documented by: Miscellaneous Information (Pneumonia Protocol Utilized 1 Each [facility] [place] 1 each PO ONCE PRN PRN Reason: Per Protocol Naloxone HCl (Naloxone 0.4 Mg/Ml 1 Ml Vial) 0.2 mg IV Q2M PRN PRN Reason: Opioid Reversal Naproxen (Naproxen 250 Mg Tab) 250 mg PO TID [facility] Last Admin: 04/18/21 08:03 Dose: 250 mg Documented by: Nicotine (Nicotine 21mg/24hr Patch) 1 patch TRANSDERM DAILY [facility] Last Admin: 04/18/21 08:03 Dose: Not Given Documented by: Ondansetron HCl (Ondansetron 4 Mg/2 Ml Vial) 4 mg IVP Q8HR PRN PRN Reason: Nausea And Vomiting Oxycodone/Acetaminophen (Oxycodone-Apap 10-325mg 1 Each Tab) 1 each PO QID PRN PRN Reason: Pain Last Admin: 04/18/21 13:44 Dose: 1 each Documented by: Past medical history to include: Chronic low back pain from prior surgery. Smoker muscle spasm Social history: . Smokes a pack a day for close to 24 years. Alcohol occasionally. Occasional recreational drug. Family history: Reviewed, noncontributory to presentation Physical examination: VITAL SIGNS: 97.9, 86, 16, 131/65, 92% on room air GENERAL: Sitting on bed, looking bit better. EYES: Pupils equal. Conjunctiva normal. HEENT: External appearance of nose and ears normal, oral cavity grossly normal. NECK: JVD not raised; masses not palpable. HEART: First and second heart sounds are normal; no edema. LUNGS: Respiratory rate increased; decreased breath sounds or wheezing and basal crackles. ABDOMEN: Soft, nontender, liver spleen not palpable, no masses palpable. PSYCH: Alert and oriented x3; mood and affect normal. INVESTIGATIONS, reviewed in the clinical context: WBC 35.2 hemoglobin 13.2 platelets 632 increased neutrophils sodium 136 potassium 3 BUN 7 creatinine 0.68 Urine drug screen positive for opiates, oxycodone, tricyclic antidepressants, and amphetamines, cocaine, marijuana Coronavirus [PCR]: Not detected EKG tracing personally reviewed by me-normal sinus rhythm, ST-T wave changes rate 90 Chest x-ray film personally reviewed by me-left lower lobe infiltrate. Possible right-sided infiltrate to. Moderate left-sided pleural effusion. The areas of loculation. Assessment and plan: -Left-sided pneumonia possible multilobar, suspect gram-negative organism: Slow to respond IV Levaquin. -Left-sided severe pleuritic pain. Naproxen scheduled -Left-sided parapneumonic effusion/empyema.: Slow to respond Possible chest tube. Consult cardiothoracic surgery -COPD in a current smoker DuoNeb. IV Solu-Medrol -Chronic nicotine dependence, cigarettes smoker Nicotine patch IV Levaquin. DuoNeb. IV Solu-Medrol. Naproxen . Consult cardiothoracic surgery. Discussed with Dr. Mora from pulmonary.
[2021-04-18] MEDS ORDERED: CEFEPIME 2 GM in SODIUM CHLORIDE 0.9% 100 ML IVPB ONE (16:30)
--- NOTE | 2021-04-18 16:32 | P.GSCN ---
History of Present Illness Consult date: 04/18/21 Reason for Consult: left side empyema Requesting physician: Jesse Leavitt History of present illness: this is a 45-year-old gentleman who follows with Dr. Grabiel Jean on an outpatient basis for his primary care service. He has a past medical history significant for chronic ongoing tobacco abuse smokes about 1-1/2 packs per day, chronic lower back pain with history of fusion of L5 to S1, occasional marijuana use and rare cocaine use. Recently, the patient has had complaints of left- sided rib pain, left-sided pain below his collarbone and pain with taking a deep breath. He also reports over the past 2-3 weeks episodes of shortness of breath and a low-grade fever that went away after taking Motrin. He denies any recent nausea, vomiting, trauma, diarrhea, constipation, headache, hemoptysis, hematemesis or cough. Due to the complaints of pain, shortness of breath and low-grade fever he presented to his primary care physician's office yesterday. Subsequently he was sent to the hospital for further evaluation and treatment recommendations. In the emergency department a chest x-ray was completed which showed a left lower lobe infiltrate and effusion with mild patchy density right lower lobe. For further evaluation the patient underwent a CT chest angio for PE which showed no evidence for pulmonary embolism, although it didn't demonstrate a moderate left-sided pleural effusion with areas of loculation, basilar compressive atelectasis and/or infiltrates bilaterally left greater than right. A 12-lead EKG was completed which showed normal sinus rhythm, ST and T- wave abnormality with a heart rate of 90 BPM. Initial laboratory results showed a WBC count 35.2, hemoglobin 13.2, hematocrit 41.1, platelets 632, d-dimer 0.81, sodium 136, potassium 3.0, BUN 7, creatinine 0.68, glucose 112, magnesium 1.6, coronavirus tests showed not detected and his urine drug screen was positive for opiates, oxycodone, tricyclic antidepressants, methamphetamines, cocaine and marijuana. The patient was afebrile on admission, is hemodynamically stable and on no inotropic or pressor support. Due to the patient's presenting symptoms and findings on his chest x-ray and computed tomography scan of his chest a consult was placed to Dr. Cristi Parks for further evaluation and treatment recommendations.. Review of Systems A 14 point review of systems was completed was negative except as mentioned in the HPI. Past Medical History Additional Past Medical History / Comment(s): Lower back pain with history of fusion of L5-S1. -2015 History of Any Multi-Drug Resistant Organisms: None Reported Past Surgical History: Back Surgery, Orthopedic Surgery Additional Past Surgical History / Comment(s): L knee. R arm Surgery Past Anesthesia/Blood Transfusion Reactions: No Reported Reaction Past Psychological History: No Psychological Hx Reported Smoking Status: Current every day smoker Past Alcohol Use History: Occasional Past Drug Use History: Cocaine, Marijuana Additional Drug Use History / Comment(s): Pt states he went to a green party last weekend and did 3 lines but usually doesn't do drugs. - Past Family History Mother Family Medical History: Congestive Heart Failure (CHF), COPD Additional Family Medical History / Comment(s): Panic attacks Father Additional Family Medical History / Comment(s): EtOH and lung problems Medications and Allergies Home Medications Medication Instructions Recorded Confirmed Type Cyclobenzaprine [Flexeril] 10 mg PO BID 04/17/21 04/17/21 History Ibuprofen [Motrin] 800 mg PO DAILY PRN 04/17/21 04/17/21 History oxyCODONE HCL/ACETAMINOPHEN 1 tab PO QID PRN 04/17/21 04/17/21 History [Percocet 10-325 mg] Allergies Allergy/AdvReac Type Severity Reaction Status Date / Time Penicillins Allergy Anaphylaxis Verified 04/17/21 14:40 Surgical - Exam Vital Signs Temp Pulse Resp BP Pulse Ox 98.8 F 98 18 109/66 98 04/17/21 11:54 04/17/21 11:54 04/17/21 11:54 04/17/21 11:54 04/17/21 11:54 - General Patient is resting comfortably in bed on the fourth floor medical surgical unit, his cooperative and is in no acute distress. well developed, well nourished, no distress - Eyes PERRL, normal ocular movement, no pale, no icteric, no loss of movement - ENT normal pinna, normal nares, normal mucosa, no hearing loss, no congestion, de ntures - Neck Neck is supple, no lymphadenopathy. no masses, no bruits, trachea midline, no venous distension - Respiratory Lungs sounds essentially clear to his bilateral upper lobes, diminished to his bilateral bases left greater than right. Respirations are symmetrical and nonlabored. Achieving 1500 mL on his incentive spirometry. - Cardiovascular Regular rhythm and rate. S1 and S2 present, negative pressure, gallop or murmur. No edema present. - Abdomen Abdomen is soft, nontender and nondistended. Active bowel sounds present all 4, quadrants. No guarding or rigidity. No organomegaly appreciated. - Integumentary no rash, no growths, no abnormal pigmentation - Neurologic Cranial nerves II through XII intact. No focal deficits. normal coordination, normal sensation - Musculoskeletal normal gait, normal posture - Psychiatric oriented to time, oriented to person, oriented to place, speech is normal, memory intact Results - Labs 04/17/21 12:39 04/17/21 12:39 - Imaging Chest x-ray: report reviewed, image reviewed CT scan - chest: report reviewed, image reviewed EKG: image reviewed Assessment and Plan Assessment: 1. Left-sided empyema 2. Shortness of breath and left-sided chest pain secondary to above 3. Chronic ongoing tobacco dependence 4. Occasional marijuana use 5. Rare cocaine use Plan: The patient was seen and examined at his bedside on the fourth floor medical surgical unit. Discharge diagnostics reviewed. His case was discussed in detail with Dr. Cristi Parks from cardiothoracic surgery. Recommendations for placement of left chest pigtail catheter by interventional radiology. Once his pigtail catheter has been placed we will instill alteplase 10 mg in 50 mL of 0.9% normal saline and dornase 5 mg and 50 mL of 0.9% normal saline. No surgical intervention is warranted at this time. Medical management and other comorbidities per primary care service. Importance of risk modification including smoking cessation was discussed in detail with the patient. The patient reports he plans to quit smoking. IV antibiotic management per primary care and infectious disease recommendations. Currently the patient is on cefepime and Levaquin for antibiotic coverage. We will continue to monitor his daily chest x-rays. Once the pigtail catheter has been placed recommendations to keep pigtail catheter to low continuous wall suction -20 cm H2O. Encourage use of incentive spirometry 10 times every hour while awake. More juan mmendations to follow based on patient's clinical course. Thank you Dr. Leavitt for this consult and we will 4 to work with you in the care of this patient. Time with Patient: Greater than 30
[2021-04-18] MEDS ORDERED: ALTEPLASE 10 MG in SODIUM CHLORIDE 0.9% 50 ML IRRIGATION ONE (16:45)
[2021-04-18] MEDS ORDERED: DORNASE ALFA 5 MG in SODIUM CHLORIDE 0.9% 50 ML IRRIGATION ONE (16:45)
[2021-04-18] MEDS ORDERED: LORazepam 0.5 MG TAB PO PRN (21:00)
--- NOTE | 2021-04-18 22:44 | P.CONS ---
History of Present Illness - Reason for Consult Consult date: 04/18/21 left sided empyema Requesting physician: Kam Devi - Chief Complaint left sided chest pain x 2 days - History of Present Illness History of present illness : Patient is 45-year-old male presenting to the ER yesterday afternoon for evaluation of left-sided chest pain that started about 2 days before the presentation to the hospital patient denies having hist ory of any trauma patient complaining of pain to be sharp in nature and worse with taking a deep breath intensity is almost 8 out of 10 no radiation with associated shortness of breath patient also have a cough which is mild in intensity and not bringing up any sputum patient did have some nausea but no vomiting no abdominal pain or diarrhea with the symptom the patient has been evaluated by the ER physician on arrival to the ER the patient was afebrile and no fever has been recorded subsequently patient did have white count of 35,000 with a left shift creatinine 0.68 potassium was low at 3.0 urine drug screen has been positive for multiple drugs valle PCR was negative patient did have a ch est x-ray left lower lobe infiltrate and effusion noted patient also have a CT angiogram of the chest no evidence of PE did shows moderate left-sided pleural effusion with areas of loculation with basilar compression atelectasis patient was evaluated pulmonary and CT surgery patient did have a chest tube insertion by interventional radiology fluid has been obtained patient is being treated with Levaquin because of his penicillin allergy infectious disease was consulted for further management of antibiotic therapy Review of system: CONSTITUTIONAL: Positive for weakness along with low-grade fever. EYES: No complaint. ENT: No complaint. RESPIRATORY: As per history of present illness CARDIOVASCULAR: No complaint. GENITOURINARY: No complaint. GASTROINTESTINAL: No complaint. MUSCULOSKELETAL: No complaint. INTEGUMENTARY: No complaint. PSYCHOLOGIC: No complaint. ENDOCRINE: No complaint. NEUROLOGIC: No complaint. Past medical history : Reviewed, documented below Past surgical history : Reviewed, documented below Social history: Reviewed, documented below Medications: Reviewed, as documented below EXAMINATION: Vital sigans= Reviewed and documented below GENERAL DESCRIPTION: Middle-aged male lying in bed, no distress. No tachypnea or accessory muscle of respiration use. HEENT: Shows Pallor , no scleral icterus. Oral mucous membrane is dry. NECK: Trachea central, no thyromegaly. LUNGS: Unlabored breathing. Decreased breath sound at bases. No wheeze or crackle. HEART: S1, S2, regular rate and rhythm. ABDOMEN: Soft, no tenderness , guarding or rigidity EXTREMITIES: No edema of feet. SKIN: No rash, no masses palpable. NEUROLOGICAL: The patient is awake, alert, oriented x3, mood and affect normal. LABS AND RADIOLOGY: Reviewed results see below Assessment :1- Patient presented to hospital with left-sided chest pain in this pt with Evidence of left-sided effusion with some concern for loculation in this patient who status post chest tube placement concern for possible community- acquired pathogen as the patient has not been exposed to anybody with recent past and no concern for aspiration 2-penicillin allergy limiting antibiotics use Plan: 1-we will add cefepime 2 g every 8 hours and continue with the Levaquin 2-we will follow up on the cultures and adjust antibiotic if needed Patient and have multiple questions were answered in layman term We will follow on clinical condition and cultures to further adjust medication if needed Thank you for this consultation we will follow the patient along with you Past Medical History Additional Past Medical History / Comment(s): back issues- fusion of L5-S1. -2015 History of Any Multi-Drug Resistant Organisms: None Reported Past Surgical History: Back Surgery, Orthopedic Surgery Additional Past Surgical History / Comment(s): L knee. R arm Surgery Past Anesthesia/Blood Transfusion Reactions: No Reported Reaction Past Psychological History: No Psychological Hx Reported Smoking Status: Former smoker Past Alcohol Use History: None Reported Past Drug Use History: Cocaine Additional Drug Use History / Comment(s): Pt states he went to a republican last weekend and did 3 lines but usually doesn't do drugs. - Past Family History Mother Family Medical History: Congestive Heart Failure (CHF), COPD Additional Family Medical History / Comment(s): Panic attacks Father Additional Family Medical History / Comment(s): EtOH and lung problems Medications and Allergies Home Medications Medication Instructions Recorded Confirmed Type Cyclobenzaprine [Flexeril] 10 mg PO BID 04/17/21 04/17/21 History Ibuprofen [Motrin] 800 mg PO DAILY PRN 04/17/21 04/17/21 History oxyCODONE HCL/ACETAMINOPHEN 1 tab PO QID PRN 04/17/21 04/17/21 History [Percocet 10-325 mg] Allergies Allergy/AdvReac Type Severity Reaction Status Date / Time Penicillins Allergy Anaphylaxis Verified 04/17/21 14:40 Physical Exam Vitals: Vital Signs Temp Pulse Pulse Resp BP BP Pulse Ox 04/18/21 14:00 97.9 F 86 16 131/65 92 L 04/18/21 08:04 76 18 04/18/21 08:00 97.5 F L 76 18 120/78 92 L 04/18/21 02:00 98.0 F 77 19 123/74 93 L 04/18/21 00:30 77 19 04/17/21 19:40 98.0 F 92 20 112/60 95 04/17/21 16:47 80 20 112/68 95 Intake and Output 04/18/21 04/18/21 04/18/21 06:59 14:59 22:59 Other: Voiding Method Toilet Toilet # Voids 1 Weight 88.451 kg Results CBC & Chem 7: 04/17/21 12:39 04/17/21 12:39 Labs: Microbiology - Last 24 Hours (Table) 04/17/21 13:15 Blood Culture - Preliminary Blood No Growth after 24 hours 04/17/21 13:38 Blood Culture - Preliminary Blood No Growth after 24 hours
[2021-04-19] MEDS: CEFEPIME 2 GM in SODIUM CHLORIDE 0.9% 100 ML IVPB SCH ×4 (00:25→23:57)
[2021-04-19] MEDS: methylPREDNISolone SOD SUCCI 40 MG/ML 1 ML VIAL IV SCH ×4 (00:26→22:41)
[2021-04-19 03:59] LABS: Amylase, Fluid Source Pleural Fluid; Glucose, BF Source Pleural Fluid; Glucose, Body Fluid 9 mg/dL; Total Protein, Body Fluid 4930 mg/dL
[2021-04-19 04:40] LABS: Basophils # (A) 0.1 k/uL (0-0.2); Basophils % (A) 0 %; Eosinophils % (A) 0 %; HCT 38.5 % (39.0-53.0); HGB 12.2 gm/dL (13.0-17.5); Lymphocytes # (A) 0.6 k/uL (1.0-4.8); Lymphocytes % (A) 2 %; MCH 31.4 pg (25.0-35.0); MCHC 31.6 g/dL (31.0-37.0); MCV 99.5 fL (80.0-100.0); Mean Platelet Volume 7.1; Monocytes # (A) 1.7 k/uL (0-1.0); Monocytes % (A) 4 %; Neutrophils # (A) 37.5 k/uL (1.3-7.7); Neutrophils % (A) 93 %; Platelet Count 637 k/uL (150-450); RBC 3.87 m/uL (4.30-5.90); RDW 12.6 % (11.5-15.5); WBC 40.3 k/uL (3.8-10.6)
[2021-04-19 04:59] LABS: ALT 63 U/L (4-49); AST 89 U/L (17-59); African American GFR (CKD) >90 (>60 ml/min/1.73 sqM); Albumin 2.8 g/dL (3.5-5.0); Albumin/Globulin Ratio 0.9; Alkaline Phosphatase 193 U/L (38-126); Anion Gap 6 mmol/L; Blood Urea Nitrogen 12 mg/dL (9-20); Calcium 9.8 mg/dL (8.4-10.2); Carbon Dioxide 24 mmol/L (22-30); Chloride 105 mmol/L (98-107); Glucose 162 mg/dL (74-99); Non-African American GFR(CKD) >90 (>60 ml/min/1.73 sqM); Potassium 3.9 mmol/L (3.5-5.1); Sodium 135 mmol/L (137-145); Total Bilirubin 0.5 mg/dL (0.2-1.3); Total Protein 5.8 g/dL (6.3-8.2)
[2021-04-19 05:11] LABS: C Reactive Protein 23.9 mg/dL (<1.0)
[2021-04-19] MEDS: CALCIUM CARBONATE 500 MG CHEWABLE PO PRN (05:11)
[2021-04-19] MEDS: oxyCODONE-APAP 10-325MG 1 EACH TAB PO PRN ×4 (05:11→22:42)
--- NOTE | 2021-04-19 07:22 | XR ---
EXAMINATION TYPE: XR chest 1V portable DATE OF EXAM: 04/19/2021 COMPARISON: 04/18/2021 HISTORY: Chest pain TECHNIQUE: Single frontal view of the chest is obtained. FINDINGS: Left basilar pleural catheter is in place. No evidence for pneumothorax. Basilar patchy opacities are noted which may reflect atelectasis and/or infiltrate. Cardiomediastinal silhouette is unremarkable. IMPRESSION: 1. Basilar atelectasis and/or infiltrates. Left basilar pleural catheter noted.
[2021-04-19] MEDS: IPRATROPIUM-ALBUTEROL 3 ML NEB INHALATION SCH ×4 (07:38→20:52)
[2021-04-19] MEDS ORDERED: ALTEPLASE 10 MG in SODIUM CHLORIDE 0.9% 50 ML IRRIGATION ONE (08:00)
[2021-04-19] MEDS ORDERED: DORNASE ALFA 5 MG in SODIUM CHLORIDE 0.9% 50 ML IRRIGATION ONE (08:00)
[2021-04-19] MEDS: CYCLOBENZAPRINE 10 MG TAB PO SCH ×2 (08:03→22:41)
[2021-04-19] MEDS: NICOTINE 21MG/24HR PATCH TRANSDERM SCH (08:03)
[2021-04-19] MEDS: ENOXAPARIN 40 MG/0.4 ML SYRINGE SQ SCH (08:04)
[2021-04-19] MEDS: NAPROXEN 250 MG TAB PO SCH ×3 (08:04→22:41)
--- NOTE | 2021-04-19 09:06 | P.PN ---
Subjective Progress Note Date: 04/19/21 Principal diagnosis: Empyema left lung Left-sided complicated pneumonia COPD Shortness of breath and chest pain due to above Chronic back pain 04/19/2021, patient seen and evaluated examined, after seen yesterday and examining patient I reviewed the CAT scan patient hadn't have extensive amount of left-sided pleural effusion which was loculated in the form of 2 pockets, dis cussed with primary service about need of drainage either with a chest tube or VATS or thoracotomy, discussed with thoracic surgery they feel that percutaneous drainage in the form of the small chest tube will be the better initial step, underwent chest tube placement pigtail by IR which tolerated very well patient didn't have much output yesterday but however today significant output noted so far received 1400 mL, Gram stain no organisms seen many polys identified, patient also have been evaluated by infectious disease services has been switched to cephapirin, patient has been getting recombinant alteplase to the chest tube Patient is a 45-year-old with extensive history of smoking and nicotine abuse, patient came into the hospital with sudden onset of chest pain shortness of breath denies any cough or sputum production patient has been having low-grade fever, no history of alcohol consumption, due to severity of pain and decided came into the hospital for further evaluation, patient does smoke one to one and half pack per day. Recently, workup [place] chest x-ray revealed presence of left lower lobe infiltrate and some developing pneumonia on right lower lobe noted as well, computed tomography scan of the chest negative for pulmonary embolism however left-sided pleural effusion seen small with bilateral atelectasis, follow-up chest x-ray continued show a loculated effusion white cell count 35,000 Objective - Vital Signs Vital signs: Vital Signs Temp 98.3 F 04/19/21 08:48 Pulse 82 04/19/21 08:48 Resp 20 04/19/21 08:48 BP 123/69 04/19/21 08:48 Pulse Ox 94 L 04/19/21 08:48 Intake & Output 04/18/21 04/19/21 04/19/21 18:59 06:59 18:59 Intake Total 250 Output Total 380 Balance 250 -380 Intake: Intake, IV Titration 250 Amount Cefepime 2 gm In Sodium 100 Chloride 0.9% 100 ml @ 25 mls/hr IVPB Q8HR [facility] Rx# :[id number] Levofloxacin 750Mg-D5w 150 Pmx 750 mg In Dextrose/ Water 1 150ml.bag @ 100 mls/hr IVPB Q24H [facility] Rx#: [id number] Output: Chest Tube Drainage 380 Chest Tube Left Posterior 380 Chest Other: Voiding Method Toilet Toilet # Voids 5 # Bowel Movements 0 - Exam - Constitutional General appearance: average body habitus, cooperative, disheveled - EENT Eyes: abnormal pupil, EOMI Ears: bilateral: normal - Neck Neck: normal ROM Carotids: bilateral: upstroke normal Thyroid: bilateral: normal size - Respiratory Respiratory: bilateral: diminished, left-sided chest tube and pleural VAC - Cardiovascular Rhythm: regular Heart sounds: normal: S1, S2 - Gastrointestinal General gastrointestinal: decreased bowel sounds, soft - Neurologic Neurologic: CNII-XII intact - Musculoskeletal Musculoskeletal: gait normal, generalized weakness, strength equal bilaterally - Psychiatric Psychiatric: A&O x's 3, appropriate affect, intact judgment & insight - Labs CBC & Chem 7: 04/19/21 04:01 04/19/21 04:01 Labs: Abnormal Lab Results - Last 24 Hours (Table) 04/19/21 04/19/21 Range/Units 04:01 04:01 WBC 40.3 H (3.8-10.6) k/uL RBC 3.87 L (4.30-5.90) m/uL Hgb 12.2 L (13.0-17.5) gm/dL Hct 38.5 L (39.0-53.0) % Plt Count 637 H (150-450) k/uL Neutrophils # 37.5 H (1.3-7.7) k/uL Lymphocytes # 0.6 L (1.0-4.8) k/uL Monocytes # 1.7 H (0-1.0) k/uL Sodium 135 L (137-145) mmol/L Glucose 162 H (74-99) mg/dL AST 89 H (17-59) U/L ALT 63 H (4-49) U/L Alkaline Phosphatase 193 H (38-126) U/L C-Reactive Protein 23.9 H (<1.0) mg/dL Total Protein 5.8 L (6.3-8.2) g/dL Albumin 2.8 L (3.5-5.0) g/dL Microbiology - Last 24 Hours (Table) 04/18/21 16:32 Gram Stain - Preliminary Pleural Fluid Body Fluid Culture - Preliminary 04/18/21 20:00 Sputum Culture - Preliminary Sputum 04/18/21 16:32 Fungal Culture - Preliminary Pleural Fluid 04/18/21 16:32 Acid Fast Bacilli Culture - Preliminary Pleural Fluid 04/17/21 13:15 Blood Culture - Preliminary Blood No Growth after 24 hours 04/17/21 13:38 Blood Culture - Preliminary Blood No Growth after 24 hours Assessment and Plan Assessment: Empyema left lung, status post percutaneous drainage through a pigtail catheter by IR Left-sided complicated pneumonia COPD Shortness of breath and chest pain due to above Plan: Continue antibiotics IV Consult cardiothoracic surgery for evaluation thoracotomy on the left side Time with Patient: Greater than 30
--- NOTE | 2021-04-19 09:46 | P.PN ---
Subjective Progress Note Date: 04/19/21 Principal diagnosis: Left-sided loculated pleural effusion. Past medical history significant for chronic ongoing tobacco abuse smokes about 1-1/2 packs per day, chronic lower back pain with history of fusion of L5 to S1, occasional marijuana use and rare cocaine use. Status post day #1 placement of left-sided pigtail catheter by interventional radiology. The patient was seen in follow-up today at his bedside on the fourth floor medical surgical unit. He is currently up ambulating in his room, is awake, alert and oriented 3 and is in no acute distress. He denies any complaints of shortness of breath although is complaining of some pain to his pigtail catheter insertion site and to his lower back which is chronic in nature. Oxygen saturation are 94% on room air and he is achieving 5982-1088 mL on his incentive spirometry. Left chest pigtail catheter remains in place to low continuous wall suction -20 cm H2O. No air leak is present. Draining thin serous drainage with 1.2 L of output since the placement of the pigtail catheter. Remote telemetry showing normal sinus rhythm heart rate 92 BPM and his T-max temperature in the last 24 hours was 99.3F. Preliminary blood culture results show no growth after 24 hours, sputum culture results show few polymorphonuclear leukocytes, few epithelial cells and a few budding yeast. Infectious disease is following t he patient and the patient is currently on cefepime and Levaquin for antibiotic coverage. The patient is also on Solu-Medrol 40 mg IV every 8 hours. Laboratory results this morning show a WBC count of 40.3, hemoglobin 12.2, hematocrit 38.5, platelets 637, sodium 135, potassium 3.9, BUN 12, creatinine 0.77 and C-reactive protein 23.9. Objective - Vital Signs Vital signs: Vital Signs Temp 98.3 F 04/19/21 08:48 Pulse 82 04/19/21 08:48 Resp 20 04/19/21 08:48 BP 123/69 04/19/21 08:48 Pulse Ox 94 L 04/19/21 08:48 Intake & Output 04/18/21 04/19/21 04/19/21 18:59 06:59 18:59 Intake Total 250 Output Total 380 Balance 250 -380 Intake: Intake, IV Titration 250 Amount Cefepime 2 gm In Sodium 100 Chloride 0.9% 100 ml @ 25 mls/hr IVPB Q8HR [facility] Rx# :[id number] Levofloxacin 750Mg-D5w 150 Pmx 750 mg In Dextrose/ Water 1 150ml.bag @ 100 mls/hr IVPB Q24H [facility] Rx#: [id number] Output: Chest Tube Drainage 380 Chest Tube Left Posterior 380 Chest Other: Voiding Method Toilet Toilet # Voids 5 # Bowel Movements 0 - Exam CONSTITUTIONAL: Standing up in his room on the medical surgical unit, appears comfortable, cooperative, no apparent acute distress. HEENT: Neck is supple, no JVD, no lymphadenopathy. RESPIRATORY: Lungs sounds essentially clear throughout, diminished to his bilateral bases left greater than right. Respirations are symmetrical and nonlabored. Currently on room air with oxygen saturations 94%. Able to achieve 4812-0463 mL on his incentive spirometry. Strong cough. Left chest pigtail catheter site in place to low continuous wall suction -20 cm H2O. No air leak is present. 380 mL output in the last 8 hours and 1.2 L output since the pigtail catheter was placed. CARDIOVASCULAR: Regular rhythm and rate. S1 and S2 present, negative for S3, gallop or murmur. Remote telemetry showing normal sinus rhythm heart rate 92 BPM GASTROINTESTINAL: Abdomen soft, nontender, nondistended. Active bowel sounds present 4 quadrants. Tolerating diet. Passing flatus. No guarding or rigidity. GENITOURINARY: Continues to void. INTEGUMENTARY: Skin is warm and dry with no evidence of clubbing or cyanosis. Dressing is clean, dry and intact to his left chest pigtail catheter site. NEUROLOGIC: Cranial nerves II through XII intact. No focal deficits. MUSKULOSKELETAL: Able to move all extremities, strength equal bilaterally. PSYCHIATRIC: Alert and oriented to person place and time, appropriate affect, intact judgment and insight. - Allied health notes Allied health notes reviewed: nursing - Labs CBC & Chem 7: 04/19/21 04:01 04/19/21 04:01 Labs: Abnormal Lab Results - Last 24 Hours (Table) 04/19/21 04/19/21 Range/Units 04:01 04:01 WBC 40.3 H (3.8-10.6) k/uL RBC 3.87 L (4.30-5.90) m/uL Hgb 12.2 L (13.0-17.5) gm/dL Hct 38.5 L (39.0-53.0) % Plt Count 637 H (150-450) k/uL Neutrophils # 37.5 H (1.3-7.7) k/uL Lymphocytes # 0.6 L (1.0-4.8) k/uL Monocytes # 1.7 H (0-1.0) k/uL Sodium 135 L (137-145) mmol/L Glucose 162 H (74-99) mg/dL AST 89 H (17-59) U/L ALT 63 H (4-49) U/L Alkaline Phosphatase 193 H (38-126) U/L C-Reactive Protein 23.9 H (<1.0) mg/dL Total Protein 5.8 L (6.3-8.2) g/dL Albumin 2.8 L (3.5-5.0) g/dL Microbiology - Last 24 Hours (Table) 04/18/21 20:00 Gram Stain - Preliminary Sputum Sputum Culture - Preliminary 04/18/21 16:32 Gram Stain - Preliminary Pleural Fluid Body Fluid Culture - Preliminary 04/18/21 16:32 Fungal Culture - Preliminary Pleural Fluid 04/18/21 16:32 Acid Fast Bacilli Culture - Preliminary Pleural Fluid 04/17/21 13:15 Blood Culture - Preliminary Blood No Growth after 24 hours 04/17/21 13:38 Blood Culture - Preliminary Blood No Growth after 24 hours - Imaging and Cardiology Chest x-ray: report reviewed, image reviewed Assessment and Plan Assessment: 1. Left-sided loculated pleural effusion, status post left-sided pigtail catheter placement by interventional radiology 2. Shortness of breath and left-sided chest pain secondary to above 3. Chronic ongoing tobacco dependence 4. Occasional marijuana use 5. Rare cocaine use Plan: 1. We will instill alteplase/dornase pleural instillation through his left chest pigtail catheter today which will be his second dose. 2. Encourage use of his incentive spirometry 10 times every hour while awake. 3. Follow culture results. Infectious disease is following the patient and is managing IV antibiotics. 4. Increase activity as tolerated. Out of bed for all meals. May disconnect pigtail catheter from wall suction during ambulation. 5. Pain control per current when necessary orders. 6. Continue to follow daily chest x-rays. 7. GI and DVT prophylaxis. 8. Left chest pigtail catheter in place, keep connected to low continuous wall suction at -20 cm H2O. May disconnect pigtail catheter from wall suction with ambulation. 9. More recommendations follow based on patient's clinical course. Time with Patient: Greater than 30
[2021-04-19] MEDS: LEVOFLOXACIN 750 MG TAB PO SCH (14:54)
--- NOTE | 2021-04-19 16:04 | P.PN ---
Progress Note - Text Progress Note Date: 04/19/21 Chief Complaint: Left chest sharp pain This is a 45-year-old patient who follows with Grabiel Jean. Patient is smoker. Patient does take Percocet Motrin and Flexeril for low back pain is at prior surgery. Patient now presents with sharp left-sided pain. Which is worse with deep breathing and activity. Is unable to take a deep breath and catches his breath. Denied any obvious fever and chills. No dizziness, lightheadedness no perspiration. He stated that last Wednesday taken some cocaine. Presented to ER. After going to see his family doctor in the office. Chest x-ray showed significant pneumonia. Started on IV Levaquin. Patient has penicillin ALLERGY. The pain is on the pleuritic in nature. CT chest showing empyema. April 18: Sitting up in bed. Some less short of breath. Some decrease in pleuritic chest pain. On IV Levaquin. Naproxen. Oral intake better. Discussed with Dr. Mora from pulmonary. Cardiothoracic surgery consulted. April 19: Patient had a pigtail catheter placed yesterday. At2 low continuous wall suction. Significant drainage. Pleuritic pain improved. Oral intake improving. Breathing better. Review of systems: Was done for constitutional, cardiovascular, GI, pulmonary. relevant finding as above Active Medications Acetaminophen (Acetaminophen Tab 325 Mg Tab) 650 mg PO Q6HR PRN PRN Reason: Mild Pain or Fever > 100.5 Al Hydroxide/Mg Hydroxide (Mag Hydrox/Al Hydrox/Simeth 30 Ml Cup) 15 ml PO Q6HR PRN PRN Reason: Indigestion Albuterol Sulfate (Albuterol Nebulized 2.5 Mg/3 Ml) 2.5 mg INHALATION RT-QID PRN PRN Reason: Shortness Of Breath Albuterol/Ipratropium (Ipratropium-Albuterol 3 Ml Neb) 3 ml INHALATION RT-QID [facility] Last Admin: 04/19/21 15:54 Dose: Not Given Documented by: Calcium Carbonate/Glycine (Calcium Carbonate 500 Mg Chewable) 1,000 mg PO Q4HR PRN PRN Reason: Dyspepsia Last Admin: 04/19/21 05:11 Dose: 1,000 mg Documented by: Cyclobenzaprine HCl (Cyclobenzaprine 10 Mg Tab) 10 mg PO BID [facility] Last Admin: 04/19/21 08:03 Dose: 10 mg Documented by: Enoxaparin Sodium (Enoxaparin 40 Mg/0.4 Ml Syringe) 40 mg SQ DAILY [facility] Last Admin: 04/19/21 08:04 Dose: 40 mg Documented by: Cefepime HCl 2 gm/ Sodium (Chloride) 100 mls @ 25 mls/hr IVPB Q8HR [facility] Last Admin: 04/19/21 14:54 Dose: 25 mls/hr Documented by: Lactulose (Lactulose 20 Gm/30 Ml Cup) 20 gm PO DAILY PRN PRN Reason: Constipation Levofloxacin (Levofloxacin 750 Mg Tab) 750 mg PO Q24H [facility] Last Admin: 04/19/21 14:54 Dose: 750 mg Documented by: Lorazepam (Lorazepam 2 Mg/Ml Inj) 0.5 mg IV Q6HR PRN PRN Reason: Anxiety Lorazepam (Lorazepam 0.5 Mg Tab) 0.5 mg PO Q8H PRN PRN Reason: Anxiety Magnesium Hydroxide (Magnesium Hydroxide 2,400 Mg/10 Ml Cup) 2,400 mg PO DAILY PRN PRN Reason: Constipation Melatonin (Melatonin 3 Mg Tablet) 3 mg PO HS PRN PRN Reason: Insomnia Methylprednisolone Sodium Succinate (Methylprednisolone Sod Succi 40 Mg/Ml 1 Ml Vial) 40 mg IV Q8HR [facility] Last Admin: 04/19/21 08:03 Dose: 40 mg Documented by: Miscellaneous Information (Pneumonia Protocol Utilized 1 Each [facility]) 1 each PO ONCE PRN PRN Reason: Per Protocol Naloxone HCl (Naloxone 0.4 Mg/Ml 1 Ml Vial) 0.2 mg IV Q2M PRN PRN Reason: Opioid Reversal Naproxen (Naproxen 250 Mg Tab) 250 mg PO TID [facility] Last Admin: 04/19/21 14:53 Dose: 250 mg Documented by: Nicotine (Nicotine 21mg/24hr Patch) 1 patch TRANSDERM DAILY [facility] Last Admin: 04/19/21 08:03 Dose: Not Given Documented by: Ondansetron HCl (Ondansetron 4 Mg/2 Ml Vial) 4 mg IVP Q8HR PRN PRN Reason: Nausea And Vomiting Oxycodone/Acetaminophen (Oxycodone-Apap 10-325mg 1 Each Tab) 1 each PO QID PRN PRN Reason: Pain Last Admin: 04/19/21 10:47 Dose: 1 each Documented by: Past medical history to include: Chronic low back pain from prior surgery. Smoker muscle spasm Social history: . Smokes a pack a day for close to 24 years. Alcohol occasionally. Occasional recreational drug. Family history: Reviewed, noncontributory to presentation Physical examination: VITAL SIGNS: 97.6, 85, 18, 134/76, 94% room air GENERAL: Sitting on bed, not in distress EYES: Pupils equal. Conjunctiva normal. HEENT: External appearance of nose and ears normal, oral cavity grossly normal. NECK: JVD not raised; masses not palpable. HEART: First and second heart sounds are normal; no edema. LUNGS: Respiratory rate increased; decreased breath sounds . Left-sided pigtail catheter/low continuous suction ABDOMEN: Soft, nontender, liver spleen not palpable, no masses palpable. PSYCH: Alert and oriented x3; mood and affect normal. INVESTIGATIONS, reviewed in the clinical context: April 19: WBC 40.3 hemoglobin 12.2 potassium 3.9 creatinine 0.77. Pro- calcitonin 0.22 WBC 35.2 hemoglobin 13.2 platelets 632 increased neutrophils sodium 136 potassium 3 BUN 7 creatinine 0.68 Urine drug screen positive for opiates, oxycodone, tricyclic antidepressants, and amphetamines, cocaine, marijuana Coronavirus [PCR]: Not detected EKG tracing personally reviewed by me-normal sinus rhythm, ST-T wave changes rate 90 Chest x-ray film personally reviewed by me-left lower lobe infiltrate. Possible right-sided infiltrate to. Moderate left-sided pleural effusion. The areas of loculation. Assessment and plan: -Left-sided pneumonia possible multilobar, suspect gram-negative organism: Slow to respond IV Levaquin. -Left-sided severe pleuritic pain. Naproxen scheduled -Left-sided parapneumonic effusion/empyema.: Slow to respond Pigtail catheter to continuous suction. Good output. Alteplase. -COPD in a current smoker DuoNeb. IV Solu-Medrol -Chronic nicotine dependence, cigarettes smoker Nicotine patch IV cefepime. DuoNeb. IV Solu-Medrol. Naproxen . Discussed with the patient. Continue.
--- NOTE | 2021-04-19 21:50 | PN ---
PROGRESS NOTE DATE OF SERVICE: 04/19/2021 REASON FOR FOLLOWUP: Left-sided empyema/pneumonia. INTERVAL HISTORY: The patient is afebrile. The patient is breathing comfortably. The patient did have a cough with occasional sputum. No nausea, no vomiting. No abdominal pain, no diarrhea. PHYSICAL EXAMINATION: Blood pressure is 122/73 with a pulse of 89, temperature 98.7. He is 94% on room air. General description is a middle-aged male up in the room in no distress. Respiratory system: Unlabored breathing, decreased intensity of breath sounds, no wheeze. Heart S1, S2. Regular rate and rhythm. Abdomen soft, no tenderness. LABS: Hemoglobin 12.1, white count up to ( ), creatinine 0.77. Pleural fluid culture so far pending. DIAGNOSTIC IMPRESSION AND PLAN: Patient with left-sided pneumonia concerning for ( ) status post chest tube placement. The patient's worsening white count could be related to steroids as clinically no worsening on physical examination. Patient to continue cefepime and Levaquin while waiting for the culture to finalize and monitor clinical course closely. MMODL / IJN: [id number] /
[2021-04-20] MEDS: oxyCODONE-APAP 10-325MG 1 EACH TAB PO PRN ×4 (05:38→22:54)
[2021-04-20 06:14] LABS: HCT 39.1 % (39.0-53.0); HGB 12.2 gm/dL (13.0-17.5); MCH 31.5 pg (25.0-35.0); MCHC 31.3 g/dL (31.0-37.0); MCV 100.6 fL (80.0-100.0); Mean Platelet Volume 6.8; Platelet Count 656 k/uL (150-450); RBC 3.89 m/uL (4.30-5.90); RDW 12.7 % (11.5-15.5); WBC 34.6 k/uL (3.8-10.6)
[2021-04-20 06:26] LABS: African American GFR (CKD) >90 (>60 ml/min/1.73 sqM); Anion Gap 9 mmol/L; Blood Urea Nitrogen 12 mg/dL (9-20); Calcium 9.6 mg/dL (8.4-10.2); Carbon Dioxide 20 mmol/L (22-30); Chloride 107 mmol/L (98-107); Glucose 131 mg/dL (74-99); Non-African American GFR(CKD) >90 (>60 ml/min/1.73 sqM); Potassium 3.9 mmol/L (3.5-5.1); Sodium 136 mmol/L (137-145)
[2021-04-20 06:54] LABS: Lymphocytes # (M) 1.04 k/uL (1.0-4.8); Neutrophils # (M) 33.56 k/uL (1.3-7.7); Neutrophils % (M) 97 %; Nucleated Red Blood Cells 0 /100 WBC (0-0); Total Cells Counted 100
--- NOTE | 2021-04-20 07:34 | XR ---
EXAMINATION TYPE: XR chest 1V portable DATE OF EXAM: 04/20/2021 COMPARISON: 04/19/2021 HISTORY: Shortness of breath TECHNIQUE: Single frontal view of the chest is obtained. FINDINGS: Stable left basilar pleural catheter with the basilar atelectasis and/or infiltrates remain stable. The cardiac silhouette size is within normal limits. The osseous structures are intact. IMPRESSION: 1. Able chest
[2021-04-20] MEDS: NAPROXEN 250 MG TAB PO SCH ×3 (07:53→22:59)
[2021-04-20] MEDS: NICOTINE 21MG/24HR PATCH TRANSDERM SCH (07:54)
[2021-04-20] MEDS: CYCLOBENZAPRINE 10 MG TAB PO SCH ×2 (07:54→22:52)
[2021-04-20] MEDS: ENOXAPARIN 40 MG/0.4 ML SYRINGE SQ SCH (07:54)
[2021-04-20] MEDS: IPRATROPIUM-ALBUTEROL 3 ML NEB INHALATION SCH ×4 (08:13→19:44)
[2021-04-20] MEDS: methylPREDNISolone SOD SUCCI 40 MG/ML 1 ML VIAL IV SCH ×2 (08:14→22:52)
[2021-04-20] MEDS: CEFEPIME 2 GM in SODIUM CHLORIDE 0.9% 100 ML IVPB SCH ×3 (08:14→22:58)
[2021-04-20] MEDS ORDERED: ALTEPLASE 10 MG in SODIUM CHLORIDE 0.9% 50 ML IRRIGATION ONE (09:00)
[2021-04-20] MEDS ORDERED: DORNASE ALFA 5 MG in SODIUM CHLORIDE 0.9% 50 ML IRRIGATION ONE (09:00)
--- NOTE | 2021-04-20 09:17 | P.PN ---
Subjective Progress Note Date: 04/20/21 Principal diagnosis: Left-sided loculated pleural effusion. Past medical history significant for chronic ongoing tobacco abuse smokes about 1-1/2 packs per day, chronic lower back pain with history of fusion of L5 to S1, occasional marijuana use and rare cocaine use. Status post day #2 placement of left-sided pigtail catheter by interventional radiology. The patient was seen in follow-up today 04/20/2021 at his bedside on the fourth floor medical surgical unit. Currently he is lying in bed eating breakfast, is awake, alert and oriented 3 and is in no acute distress. He denies any complaints of shortness of breath or pain at this time. Left chest pigtail catheter remains in place to low continuous wall suction -20 cm H2O. No air leak is present. Draining thin serosanguineous drainage with 610 mL output in the last 24 hours. Oxygen saturation are 94% on room air and he is achieving 2500 mL on his incentive spirometry. Preliminary blood culture results show no growth after 48 hours hours, sputum culture results show few polymorphonuclear leukocytes, few epithelial cells and a few budding yeast. Infectious disease is following the patient and the patient remains on cefepime and Levaquin for antibiotic coverage. The patient also remains on Solu-Medrol 40 mg IV every 8 hours managed by primary care service. Laboratory results this morning show a WBC count of 34.6, hemoglobin 12.2, hematocrit 39.1, platelets 656, sodium 136, potassium 3.9, BUN 12, and creatinine 0.59. He is been afebrile the last 24 hours. He continues to ambulate in his room throughout the day. A dose of alteplase/dornase was instilled through his left pigtail catheter yesterday which was his second dose. Objective - Vital Signs Vital signs: Vital Signs Temp 97.9 F 04/20/21 08:31 Pulse 72 04/20/21 08:31 Resp 16 04/20/21 08:31 BP 127/82 04/20/21 08:31 Pulse Ox 92 L 04/20/21 08:31 Intake & Output 04/19/21 04/20/21 04/20/21 18:59 06:59 18:59 Other: Voiding Method Toilet # Voids 4 # Bowel Movements 0 - Exam CONSTITUTIONAL: Laying in bed on the medical surgical unit, appears comfortable, cooperative, no apparent acute distress. HEENT: Neck is supple, no JVD, no lymphadenopathy. RESPIRATORY: Lungs sounds essentially clear throughout, diminished to his bilateral bases left greater than right. Respirations are symmetrical and nonlabored. Currently on room air with oxygen saturations 94%. Able to achieve 2500 mL on his incentive spirometry. Strong cough. Left chest pigtail catheter site in place to low continuous wall suction -20 cm H2O. No air leak is present. 610 mL output in the last 24 hours of thin serous drainage. CARDIOVASCULAR: Regular rhythm and rate. S1 and S2 present, negative for S3, gallop or murmur. GASTROINTESTINAL: Abdomen soft, nontender, nondistended. Active bowel sounds present 4 quadrants. Tolerating diet. Passing flatus. No guarding or rigidity. GENITOURINARY: Continues to void. INTEGUMENTARY: Skin is warm and dry with no evidence of clubbing or cyanosis. Dressing is clean, dry and intact to his left chest pigtail catheter site. NEUROLOGIC: Cranial nerves II through XII intact. No focal deficits. MUSKULOSKELETAL: Able to move all extremities, strength equal bilaterally. PSYCHIATRIC: Alert and oriented to person place and time, appropriate affect, intact judgment and insight. - Allied health notes Allied health notes reviewed: nursing - Labs CBC & Chem 7: 04/20/21 05:46 04/20/21 05:46 Labs: Abnormal Lab Results - Last 24 Hours (Table) 04/19/21 04/20/21 04/20/21 Range/Units 04:01 05:46 05:46 WBC 34.6 H (3.8-10.6) k/uL RBC 3.89 L (4.30-5.90) m/uL Hgb 12.2 L (13.0-17.5) gm/dL MCV 100.6 H (80.0-100.0) fL Plt Count 656 H (150-450) k/uL Neutrophils # (Manual) 33.56 H (1.3-7.7) k/uL Sodium 136 L (137-145) mmol/L Carbon Dioxide 20 L (22-30) mmol/L Creatinine 0.59 L (0.66-1.25) mg/dL Glucose 131 H (74-99) mg/dL Procalcitonin 0.22 H (0.02-0.09) ng/mL Microbiology - Last 24 Hours (Table) 04/18/21 16:32 Gram Stain - Preliminary Pleural Fluid Body Fluid Culture - Preliminary 04/18/21 16:32 Acid Fast Bacilli Smear - Final Pleural Fluid Acid Fast Bacilli Culture - Preliminary 04/17/21 13:15 Blood Culture - Preliminary Blood No Growth after 48 hours 04/17/21 13:38 Blood Culture - Preliminary Blood No Growth after 48 hours 04/18/21 20:00 Gram Stain - Preliminary Sputum Sputum Culture - Preliminary - Imaging and Cardiology Chest x-ray: report reviewed, image reviewed Assessment and Plan Assessment: 1. Left-sided loculated pleural effusion, status post left-sided pigtail catheter placement by interventional radiology 2. Shortness of breath and left-sided chest pain secondary to above 3. Chronic ongoing tobacco dependence 4. Occasional marijuana use 5. Rare cocaine use Plan: 1. We will instill alteplase/dornase pleural instillation through his left c hest pigtail catheter today which will be his third dose. 2. Continue to encourage use of his incentive spirometry 10 times every hour while awake. 3. Follow culture results. Infectious disease is following the patient and is managing antibiotics. 4. Increase activity as tolerated. Out of bed for all meals. 5. Pain control per current when necessary orders. 6. Continue to follow daily chest x-rays. 7. GI and DVT prophylaxis. 8. Left chest pigtail catheter in place, keep connected to low continuous wall suction at -20 cm H2O. May disconnect pigtail catheter from wall suction with ambulation. 9. More recommendations follow based on patient's clinical course. Time with Patient: Greater than 30
[2021-04-20] MEDS: LEVOFLOXACIN 750 MG TAB PO SCH (13:09)
[2021-04-20] MEDS: CALCIUM CARBONATE 500 MG CHEWABLE PO PRN ×2 (13:09→22:54)
[2021-04-20] MEDS ORDERED: FLUCONAZOLE 100 MG TAB PO ONE (21:00)
--- NOTE | 2021-04-20 21:53 | PN ---
PROGRESS NOTE DATE OF SERVICE: 04/20/2021 REASON FOR FOLLOWUP: Left-sided effusion and a question of empyema. INTERVAL HISTORY: The patient is afebrile. The patient is breathing comfortably. no nausea, no vomiting. No abdominal pain or diarrhea. PHYSICAL EXAMINATION: Blood pressure 123/72 with a pulse of 73, temperature of 98.1. He is 95% on room air. General description is a middle-aged male lying in bed in no distress. RESPIRATORY SYSTEM: Unlabored breathing. Decreased breath sounds at the bases. No wheeze. HEART: S1, S2. Regular rate and rhythm. ABDOMEN: Soft. No tenderness. LABS: Hemoglobin is 12.1, white count of .6. BUN of 12, creatinine 0.59. Sputum is Mona. Pleural fluid cultures are currently pending. DIAGNOSTIC IMPRESSION AND PLAN: Patient admitted to hospital with left-sided chest pain with evidence of left-sided fluid, status post chest tube placement. Cultures are pending. Patient is covered with cefepime; to continue to continue while monitoring clinical course closely. Continue supportive care. MMODL / IJN: [id number] /
--- NOTE | 2021-04-20 22:04 | P.PN ---
Progress Note - Text Progress Note Date: 04/20/21 Chief Complaint: Left chest sharp pain This is a 45-year-old patient who follows with Grabiel Jean. Patient is smoker. Patient does take Percocet Motrin and Flexeril for low back pain is at prior surgery. Patient now presents with sharp left-sided pain. Which is worse with deep breathing and activity. Is unable to take a deep breath and catches his breath. Denied any obvious fever and chills. No dizziness, lightheadedness no perspiration. He stated that last Wednesday taken some cocaine. Presented to ER. After going to see his family doctor in the office. Chest x-ray showed significant pneumonia. Started on IV Levaquin. Patient has penicillin ALLERGY. The pain is on the pleuritic in nature. CT chest showing empyema. April 18: Sitting up in bed. Some less short of breath. Some decrease in pleuritic chest pain. On IV Levaquin. Naproxen. Oral intake better. Discussed with Dr. Mora from pulmonary. Cardiothoracic surgery consulted. April 19: Patient had a pigtail catheter placed yesterday. At2 low continuous wall suction. Significant drainage. Pleuritic pain improved. Oral intake improving. Breathing better. April 20: 3 and 80 mL output with a pigtail catheter. Pain is better. Breathing is better. Connected to suction. Oral intake about 50%. Review of systems: Was done for constitutional, cardiovascular, GI, pulmonary. relevant finding as above Active Medications Acetaminophen (Acetaminophen Tab 325 Mg Tab) 650 mg PO Q6HR PRN PRN Reason: Mild Pain or Fever > 100.5 Al Hydroxide/Mg Hydroxide (Mag Hydrox/Al Hydrox/Simeth 30 Ml Cup) 15 ml PO Q6HR PRN PRN Reason: Indigestion Albuterol Sulfate (Albuterol Nebulized 2.5 Mg/3 Ml) 2.5 mg INHALATION RT-QID PRN PRN Reason: Shortness Of Breath Albuterol/Ipratropium (Ipratropium-Albuterol 3 Ml Neb) 3 ml INHALATION RT-QID IFEANYI Last Admin: 04/20/21 19:44 Dose: Not Given Documented by: Calcium Carbonate/Glycine (Calcium Carbonate 500 Mg Chewable) 1,000 mg PO Q4HR PRN PRN Reason: Dyspepsia Last Admin: 04/20/21 13:09 Dose: 1,000 mg Documented by: Cyclobenzaprine HCl (Cyclobenzaprine 10 Mg Tab) 10 mg PO BID [facility] Last Admin: 04/20/21 07:54 Dose: 10 mg Documented by: Enoxaparin Sodium (Enoxaparin 40 Mg/0.4 Ml Syringe) 40 mg SQ DAILY [facility] Last Admin: 04/20/21 07:54 Dose: 40 mg Documented by: Fluconazole (Fluconazole 100 Mg Tab) 100 mg PO DAILY [facility] Cefepime HCl 2 gm/ Sodium (Chloride) 100 mls @ 25 mls/hr IVPB Q8HR [facility] Last Admin: 04/20/21 17:09 Dose: 25 mls/hr Documented by: Lactulose (Lactulose 20 Gm/30 Ml Cup) 20 gm PO DAILY PRN PRN Reason: Constipation Levofloxacin (Levofloxacin 750 Mg Tab) 750 mg PO Q24H [facility] Last Admin: 04/20/21 13:09 Dose: 750 mg Documented by: Lorazepam (Lorazepam 2 Mg/Ml Inj) 0.5 mg IV Q6HR PRN PRN Reason: Anxiety Lorazepam (Lorazepam 0.5 Mg Tab) 0.5 mg PO Q8H PRN PRN Reason: Anxiety Magnesium Hydroxide (Magnesium Hydroxide 2,400 Mg/10 Ml Cup) 2,400 mg PO DAILY PRN PRN Reason: Constipation Melatonin (Melatonin 3 Mg Tablet) 3 mg PO HS PRN PRN Reason: Insomnia Methylprednisolone Sodium Succinate (Methylprednisolone Sod Succi 40 Mg/Ml 1 Ml Vial) 40 mg IV Q12H [facility] Last Admin: 04/20/21 08:14 Dose: 40 mg Documented by: Miscellaneous Information (Pneumonia Protocol Utilized 1 Each [facility]) 1 each PO ONCE PRN PRN Reason: Per Protocol Naloxone HCl (Naloxone 0.4 Mg/Ml 1 Ml Vial) 0.2 mg IV Q2M PRN PRN Reason: Opioid Reversal Naproxen (Naproxen 250 Mg Tab) 250 mg PO TID [facility] Last Admin: 04/20/21 17:09 Dose: 250 mg Documented by: Nicotine (Nicotine 21mg/24hr Patch) 1 patch TRANSDERM DAILY [facility] Last Admin: 04/20/21 07:54 Dose: Not Given Documented by: Ondansetron HCl (Ondansetron 4 Mg/2 Ml Vial) 4 mg IVP Q8HR PRN PRN Reason: Nausea And Vomiting Oxycodone/Acetaminophen (Oxycodone-Apap 10-325mg 1 Each Tab) 1 each PO QID PRN PRN Reason: Pain Last Admin: 04/20/21 17:09 Dose: 1 each Documented by: Past medical history to include: Chronic low back pain from prior surgery. Smoker muscle spasm Social history: . Smokes a pack a day for close to 24 years. Alcohol occasionally. Occasional recreational drug. Family history: Reviewed, noncontributory to presentation Physical examination: VITAL SIGNS: 97.6, 64, 16, 1:30/68, 96% room air GENERAL: Sitting on bed, not in distress EYES: Pupils equal. Conjunctiva normal. HEENT: External appearance of nose and ears normal, oral cavity grossly normal. NECK: JVD not raised; masses not palpable. HEART: First and second heart sounds are normal; no edema. LUNGS: Respiratory rate increased; decreased breath sounds . Left-sided pigtail catheter/low continuous suction ABDOMEN: Soft, nontender, liver spleen not palpable, no masses palpable. PSYCH: Alert and oriented x3; mood and affect normal. INVESTIGATIONS, reviewed in the clinical context: April 20: White count 34.6 hemoglobin 12.2 platelets 656 potassium 3.9 creatinine 0.59 April 19: WBC 40.3 hemoglobin 12.2 potassium 3.9 creatinine 0.77. Pro- calcitonin 0.22 WBC 35.2 hemoglobin 13.2 platelets 632 increased neutrophils sodium 136 potassium 3 BUN 7 creatinine 0.68 Urine drug screen positive for opiates, oxycodone, tricyclic antidepressants, and amphetamines, cocaine, marijuana Coronavirus [PCR]: Not detected EKG tracing personally reviewed by me-normal sinus rhythm, ST-T wave changes rate 90 Chest x-ray film personally reviewed by me-left lower lobe infiltrate. Possible right-sided infiltrate to. Moderate left-sided pleural effusion. The areas of loculation. Assessment and plan: -Left-sided pneumonia multilobar, suspect gram-negative organism: Slow to respond IV cefepime. Cultures pending.. -Left-sided severe pleuritic pain.: Improved Naproxen scheduled. -Left-sided parapneumonic effusion/empyema.: Slow to respond Pigtail catheter to continuous suction. Good output. Alteplase. -COPD in a current smoker Courtney. IV [id number] to prednisone -Chronic nicotine dependence, cigarettes smoker Nicotine patch IV cefepime. DuoNeb. IV [id number] to by mouth prednisone starting tomorrow. . Discussed with the patient.
[2021-04-20] MEDS: FAMOTIDINE 20 MG TAB PO SCH (23:00)
[2021-04-21] MEDS: oxyCODONE-APAP 10-325MG 1 EACH TAB PO PRN ×4 (05:51→22:58)
[2021-04-21 06:08] LABS: Basophils % (A) 0 %; Eosinophils % (A) 0 %; HCT 38.3 % (39.0-53.0); HGB 11.9 gm/dL (13.0-17.5); Lymphocytes # (A) 1.2 k/uL (1.0-4.8); Lymphocytes % (A) 6 %; MCH 31.2 pg (25.0-35.0); MCV 100.7 fL (80.0-100.0); Mean Platelet Volume 6.9; Monocytes # (A) 0.9 k/uL (0-1.0); Monocytes % (A) 4 %; Neutrophils # (A) 19.6 k/uL (1.3-7.7); Neutrophils % (A) 89 %; Platelet Count 647 k/uL (150-450); RDW 12.8 % (11.5-15.5)
[2021-04-21 06:27] LABS: ALT 167 U/L (4-49); AST 149 U/L (17-59); African American GFR (CKD) >90 (>60 ml/min/1.73 sqM); Albumin 2.7 g/dL (3.5-5.0); Albumin/Globulin Ratio 0.9; Alkaline Phosphatase 244 U/L (38-126); Anion Gap 10 mmol/L; Blood Urea Nitrogen 17 mg/dL (9-20); Calcium 9.3 mg/dL (8.4-10.2); Carbon Dioxide 23 mmol/L (22-30); Chloride 107 mmol/L (98-107); Glucose 117 mg/dL (74-99); Non-African American GFR(CKD) >90 (>60 ml/min/1.73 sqM); Potassium 3.8 mmol/L (3.5-5.1); Sodium 140 mmol/L (137-145); Total Bilirubin 0.5 mg/dL (0.2-1.3); Total Protein 5.7 g/dL (6.3-8.2)
--- NOTE | 2021-04-21 07:19 | XR ---
EXAMINATION TYPE: XR chest 1V portable DATE OF EXAM: 04/21/2021 COMPARISON: 04/20/2021 HISTORY: Left pleural effusion TECHNIQUE: Single frontal view of the chest is obtained. FINDINGS: Left basilar pleural catheter remains unchanged in position. Associated left lower lobe pleural-paren chymal density. The remainder of the lungs are clear with the exception of minimal linear atelectasis at the right lower lobe. No evidence for pneumothorax. The cardiac silhouette size is within normal limits. The osseous structures are intact. IMPRESSION: 1. Stable chest.
[2021-04-21] MEDS: IPRATROPIUM-ALBUTEROL 3 ML NEB INHALATION SCH ×4 (08:20→20:27)
[2021-04-21] MEDS: CYCLOBENZAPRINE 10 MG TAB PO SCH ×2 (08:50→22:57)
[2021-04-21] MEDS: ENOXAPARIN 40 MG/0.4 ML SYRINGE SQ SCH (08:50)
[2021-04-21] MEDS: CEFEPIME 2 GM in SODIUM CHLORIDE 0.9% 100 ML IVPB SCH ×2 (08:50→15:13)
[2021-04-21] MEDS: predniSONE 20 MG TAB PO SCH (08:51)
[2021-04-21] MEDS: FAMOTIDINE 20 MG TAB PO SCH ×2 (08:51→22:57)
[2021-04-21] MEDS: FLUCONAZOLE 100 MG TAB PO SCH (08:51)
[2021-04-21] MEDS: NAPROXEN 250 MG TAB PO SCH ×3 (08:51→22:57)
[2021-04-21] MEDS: NICOTINE 21MG/24HR PATCH TRANSDERM SCH (08:51)
[2021-04-21] MEDS ORDERED: DORNASE ALFA 5 MG in SODIUM CHLORIDE 0.9% 50 ML IRRIGATION ONE (09:00)
[2021-04-21] MEDS ORDERED: ALTEPLASE 10 MG in SODIUM CHLORIDE 0.9% 50 ML IRRIGATION ONE (09:00)
--- NOTE | 2021-04-21 11:59 | P.PN ---
Subjective Progress Note Date: 04/21/21 Principal diagnosis: Left-sided loculated pleural effusion. Past medical history significant for chronic ongoing tobacco abuse smokes about 1-1/2 packs per day, chronic lower back pain with history of fusion of L5 to S1, occasional marijuana use and rare cocaine use. Status post day #3 placement of left-sided pigtail catheter by interventional radiology. Patient was seen in follow-up today 04/21/2021 at his bedside on the fourth floor medical surgical unit. Currently he is sitting up to bedside edge, is awake, alert and oriented 3 and eating his breakfast. Denies any complaints of pain or shortness of breath at this time. Left chest pigtail catheter remains in place to low continuous wall suction -20 cm H2O. No air leak is present. Draining thin serous drainage with 20 mL output in the last 8 hours and 250 mL output in the last 24 hours. Chest x-ray completed this morning shows his left pleural catheter remains unchanged in position, left lower lobe pleural parenchymal density, and no evidence for pneumothorax. Oxygen saturations are 94% on room air and he is achieving 9760-0058 mL on his incentive spirometry with encouragement. Cytology results remain pending. Sputum culture final results showing Mona albicans and blood cultures remain showing no growth after 72 hours. He remains on cefepime and Levaquin for antibiotic coverage managed by infectious disease. Laboratory results this morning show a continued trend down in his WBC count which is 22.0 this morning, hemoglobin 11.9, platelets 647, sodium 140, potassium 3.8, BUN 17, creatinine 0.63, AST 149 and ALT 167. He is been afebrile the last 24 hours. Objective - Vital Signs Vital signs: Vital Signs Temp 97.8 F 04/21/21 08:00 Pulse 68 04/21/21 08:00 Resp 17 04/21/21 08:00 BP 118/72 04/21/21 08:00 Pulse Ox 94 L 04/21/21 08:00 Intake & Output 04/20/21 04/21/21 04/21/21 18:59 06:59 18:59 Intake Total 1560 Output Total 300 20 Balance 1260 -20 Intake: Oral 1560 Output: Chest Tube Drainage 300 20 Chest Tube Left Posterior 300 20 Chest Other: Voiding Method Toilet Toilet # Voids 5 6 # Bowel Movements 0 - Exam CONSTITUTIONAL: Significant to the bedside edge on the medical surgical unit, appears comfortable, cooperative, no apparent acute distress. HEENT: Neck is supple, no JVD, no lymphadenopathy. RESPIRATORY: Lungs sounds essentially clear throughout, diminished to his bilateral bases left greater than right. Respirations are symmetrical and nonlabored. Currently on room air with oxygen saturations 94%. Able to achieve 6361-8939 mL on his incentive spirometry. Strong cough. Left chest pigtail catheter site in place to low continuous wall suction -20 cm H2O. No air leak is present. 250 mL output in the last 24 hours of thin serous drainage. CARDIOVASCULAR: Regular rhythm and rate. S1 and S2 present, negative for S3, gallop or murmur. GASTROINTESTINAL: Abdomen soft, nontender, nondistended. Active bowel sounds present 4 quadrants. Tolerating diet. Passing flatus. No guarding or rigidity. GENITOURINARY: Continues to void. INTEGUMENTARY: Skin is warm and dry with no evidence of clubbing or cyanosis. Dressing is clean, dry and intact to his left chest pigtail catheter site. NEUROLOGIC: Cranial nerves II through XII intact. No focal deficits. MUSKULOSKELETAL: Able to move all extremities, strength equal bilaterally. PSYCHIATRIC: Alert and oriented to person place and time, appropriate affect, intact judgment and insight. - Allied health notes Allied health notes reviewed: nursing - Labs CBC & Chem 7: 04/21/21 05:40 04/21/21 05:40 Labs: Abnormal Lab Results - Last 24 Hours (Table) 04/21/21 04/21/21 Range/Units 05:40 05:40 WBC 22.0 H (3.8-10.6) k/uL RBC 3.80 L (4.30-5.90) m/uL Hgb 11.9 L (13.0-17.5) gm/dL Hct 38.3 L (39.0-53.0) % MCV 100.7 H (80.0-100.0) fL Plt Count 647 H (150-450) k/uL Neutrophils # 19.6 H (1.3-7.7) k/uL Creatinine 0.63 L (0.66-1.25) mg/dL Glucose 117 H (74-99) mg/dL AST 149 H (17-59) U/L ALT 167 H (4-49) U/L Alkaline Phosphatase 244 H (38-126) U/L Total Protein 5.7 L (6.3-8.2) g/dL Albumin 2.7 L (3.5-5.0) g/dL Microbiology - Last 24 Hours (Table) 04/18/21 20:00 Gram Stain - Final Sputum Sputum Culture - Final Mona albicans 04/18/21 16:32 Gram Stain - Preliminary Pleural Fluid Body Fluid Culture - Preliminary 04/17/21 13:38 Blood Culture - Preliminary Blood No Growth after 72 hours 04/17/21 13:15 Blood Culture - Preliminary Blood No Growth after 72 hours - Imaging and Cardiology Chest x-ray: report reviewed, image reviewed Assessment and Plan Assessment: 1. Left-sided loculated pleural effusion, status post left-sided pigtail catheter placement by interventional radiology 2. Shortness of breath and left-sided chest pain secondary to above 3. Acute transaminitis, AST 149 and ALT 167 today 4. Chronic ongoing tobacco dependence 5. Occasional marijuana use 6. Rare cocaine use Plan: 1. We will instill alteplase/dornase pleural instillation through his left chest pigtail catheter today which will be his fourth dose. 2. Continue to encourage use of his incentive spirometry 10 times every hour while awake. 3. Follow culture results. Infectious disease is following the patient and is managing antibiotics. 4. Increase activity as tolerated. Out of bed for all meals. 5. Pain control per current when necessary orders. 6. Continue to follow daily chest x-rays. 7. GI and DVT prophylaxis. 8. Left chest pigtail catheter in place, keep connected to low continuous wall suction at -20 cm H2O. May disconnect pigtail catheter from wall suction with ambulation. 9. Cytology of his pleural fluid remains pending. We will continue to follow the cytology results. 10. More recommendations follow based on patient's clinical course. Time with Patient: Greater than 30
[2021-04-21] MEDS: LEVOFLOXACIN 750 MG TAB PO SCH (15:14)
--- NOTE | 2021-04-21 20:20 | P.PN ---
Subjective Progress Note Date: 04/21/21 Principal diagnosis: Empyema left lung Left-sided complicated pneumonia COPD Shortness of breath and chest pain due to above Chronic back pain 04/21/2021, patient seen and evaluated examined during the rounds labs reviewed medications reviewed care plan discussed, respiratory status remains stable, patient mostly on room air, breathing comfortably, patient has second pleural VAC 550 mL serous fluid is present in pleural VAC, cytology is pending cultures no growth so far, no organisms seen on Gram stain, patient is overall in good spirits, denies any pain has been doing deep breathing exercise incentive spirometry 04/19/2021, patient seen and evaluated examined, after seen yesterday and examining patient I reviewed the CAT scan patient hadn't have extensive amount o f left-sided pleural effusion which was loculated in the form of 2 pockets, discussed with primary service about need of drainage either with a chest tube or VATS or thoracotomy, discussed with thoracic surgery they feel that percutaneous drainage in the form of the small chest tube will be the better initial step, underwent chest tube placement pigtail by IR which tolerated very well patient didn't have much output yesterday but however today significant output noted so far received 1400 mL, Gram stain no organisms seen many polys identified, patient also have been evaluated by infectious disease services has been switched to cephapirin, patient has been getting recombinant alteplase to the chest tube Patient is a 45-year-old with extensive history of smoking and nicotine abuse, patient came into the hospital with sudden onset of chest pain shortness of breath denies any cough or sputum production patient has been having low-grade fever, no history of alcohol consumption, due to severity of pain and decided came into the hospital for further evaluation, patient does smoke one to one and half pack per day. Recently, workup [facility] chest x-ray revealed presence of left lower lobe infiltrate and some developing pneumonia on right lower lobe noted as well, computed tomography scan of the chest negative for pulmonary embolism however left-sided pleural effusion seen small with bilateral atelectasis, follow-up chest x-ray continued show a loculated effusion white cell count 35,000 Objective - Vital Signs Vital signs: Vital Signs Temp 98.1 F 04/21/21 19:32 Pulse 74 04/21/21 19:32 Resp 16 04/21/21 19:32 BP 131/77 10/25/21 19:32 Pulse Ox 95 04/21/21 19:32 Intake & Output 04/21/21 04/21/21 04/22/21 06:59 18:59 06:59 Output Total 20 Balance -20 Output: Chest Tube Drainage 20 Chest Tube Left Posterior 20 Chest Other: Voiding Method Toilet # Voids 6 3 # Bowel Movements 0 1 - Exam - Constitutional General appearance: average body habitus, cooperative, disheveled - EENT Eyes: abnormal pupil, EOMI Ears: bilateral: normal - Neck Neck: normal ROM Carotids: bilateral: upstroke normal Thyroid: bilateral: normal size - Respiratory Respiratory: bilateral: diminished, left-sided chest tube and pleural VAC - Cardiovascular Rhythm: regular Heart sounds: normal: S1, S2 - Gastrointestinal General gastrointestinal: decreased bowel sounds, soft - Neurologic Neurologic: CNII-XII intact - Musculoskeletal Musculoskeletal: gait normal, generalized weakness, strength equal bilaterally - Psychiatric Psychiatric: A&O x's 3, appropriate affect, intact judgment & insight - Labs CBC & Chem 7: 04/21/21 05:40 04/21/21 05:40 Labs: Abnormal Lab Results - Last 24 Hours (Table) 04/21/21 04/21/21 Range/Units 05:40 05:40 WBC 22.0 H (3.8-10.6) k/uL RBC 3.80 L (4.30-5.90) m/uL Hgb 11.9 L (13.0-17.5) gm/dL Hct 38.3 L (39.0-53.0) % MCV 100.7 H (80.0-100.0) fL Plt Count 647 H (150-450) k/uL Neutrophils # 19.6 H (1.3-7.7) k/uL Creatinine 0.63 L (0.66-1.25) mg/dL Glucose 117 H (74-99) mg/dL AST 149 H (17-59) U/L ALT 167 H (4-49) U/L Alkaline Phosphatase 244 H (38-126) U/L Total Protein 5.7 L (6.3-8.2) g/dL Albumin 2.7 L (3.5-5.0) g/dL Microbiology - Last 24 Hours (Table) 04/18/21 16:32 Gram Stain - Preliminary Pleural Fluid Body Fluid Culture - Preliminary 04/17/21 13:15 Blood Culture - Preliminary Blood No Growth after 96 hours 04/17/21 13:38 Blood Culture - Preliminary Blood No Growth after 96 hours 04/18/21 20:00 Gram Stain - Final Sputum Sputum Culture - Final Mona albicans Assessment and Plan Assessment: Empyema left lung, status post percutaneous drainage through a pigtail catheter by IR Left-sided complicated pneumonia COPD Leukocytosis due to chronic inflammatory processes of empyema Chronic anemia Thrombocytosis due to chronic implemented process of empyema Substance use with drug screen positive for oxycodone, opiates, tricyclic antidepressant, methamphetamine, cocaine, marijuana Shortness of breath and chest pain due to above Plan: Continue antibiotics IV Follow-up on cytology and culture reports and results Cardiothoracic surgery also following Do deep breathing exercise incentive spirometry Time with Patient: Greater than 30
--- NOTE | 2021-04-21 23:39 | PN ---
PROGRESS NOTE This is a 45-year-old white male with empyema, left lung, left-sided complicated pneumonia, COPD, shortness of breath, chest pain secondary to above, chronic back pain. He was also found positive for cocaine. He admits to doing cocaine. He has a chest tube in the left side of his chest. CARDIOVASCULAR: S1, S2. PSYCH: Fair mood and affect. NEUROLOGIC: Alert and oriented x3. Temperature 98.1, pulse 70 to 74, respiratory rate 16 to 18, blood pressure 131 over 70s, O2 95. Blood cultures are negative. LFTs are high at 149 and 167, alkaline phosphatase 244. White count is 22,000. ASSESSMENT: 1. Empyema, left lung, status post percutaneous drainage through pigtail catheter by IR. 2. Left-sided complicated pneumonia. 3. Chronic obstructive pulmonary disease. 4. Leukocytosis secondary to empyema. 5. Thrombosis. 6. Slight ptosis due to chronic implemented process empyema. He is positive for oxycodone, opiates, methamphetamine, cocaine, marijuana, shortness of breath. Continue IV antibiotics. Cardiothoracic Surgery following. Prognosis extremely guarded. Continue broad-spectrum antibiotics. MMODL / IJN: [id number] /
[2021-04-22] MEDS: CEFEPIME 2 GM in SODIUM CHLORIDE 0.9% 100 ML IVPB SCH ×3 (00:43→15:35)
--- NOTE | 2021-04-22 00:58 | PN ---
PROGRESS NOTE DATE OF SERVICE: 04/21/2021 REASON FOR FOLLOWUP: Left-sided loculated fluid and a question of empyema. INTERVAL HISTORY: The patient is afebrile. The patient is breathing comfortably. Still complaining of pain, but no worsening. chest tube site. No nausea, no vomiting. No abdominal pain or diarrhea. PHYSICAL EXAMINATION: Blood pressure /77 with a pulse of 74, temperature 98.1. He is 95% on room air. General description is a middle-aged male up in the bed in no distress. RESPIRATORY SYSTEM: Unlabored breathing. Decreased intensity of breath sounds. No wheeze. HEART: S1, S2. Regular rate and rhythm. ABDOMEN: Soft. No tenderness. LABS: White count down to 22,000, creatinine 0.63. DIAGNOSTIC IMPRESSION AND PLAN: Patient with left-sided loculated fluid, status post chest tube placement. Culture has been negative for any resistant bacteria. At this point patient is covered with cefepime. White count is trending down. Continue with supportive care. MMODL / IJN: [id number] /
[2021-04-22] MEDS: oxyCODONE-APAP 10-325MG 1 EACH TAB PO PRN ×4 (05:36→22:24)
[2021-04-22] MEDS: IPRATROPIUM-ALBUTEROL 3 ML NEB INHALATION SCH ×4 (08:28→21:20)
[2021-04-22] MEDS: predniSONE 20 MG TAB PO SCH (08:41)
[2021-04-22] MEDS: ENOXAPARIN 40 MG/0.4 ML SYRINGE SQ SCH (08:41)
[2021-04-22] MEDS: FAMOTIDINE 20 MG TAB PO SCH ×2 (08:41→22:24)
[2021-04-22] MEDS: CYCLOBENZAPRINE 10 MG TAB PO SCH ×2 (08:41→22:25)
[2021-04-22] MEDS: FLUCONAZOLE 100 MG TAB PO SCH (08:41)
[2021-04-22] MEDS: NAPROXEN 250 MG TAB PO SCH ×3 (08:43→22:25)
[2021-04-22] MEDS: NICOTINE 21MG/24HR PATCH TRANSDERM SCH (08:43)
--- NOTE | 2021-04-22 09:03 | XR ---
EXAMINATION TYPE: XR chest 1V portable DATE OF EXAM: 04/22/2021 CLINICAL HISTORY: Difficulty breathing progress study. TECHNIQUE: Single AP portable upright view of the chest is obtained. COMPARISON: Chest x-ray from one day earlier and older studies. FINDINGS: Persistent elevated left hemidiaphragm with left basilar opacity. Stable mild right basila r linear scarring and/or atelectasis. Cardiac silhouette size stable and mildly enlarged. Nonunion fr acture distal right clavicle redemonstrated. IMPRESSION: Elevated left hemidiaphragm with left basilar acute infiltrate and/or atelectasis. Strand y right basilar linear scarring and/or atelectasis. No significant change from one day earlier.
--- NOTE | 2021-04-22 09:05 | US ---
EXAMINATION TYPE: US abdomen complete DATE OF EXAM: 04/22/2021 COMPARISON: NONE CLINICAL HISTORY: lft elevation. EXAM MEASUREMENTS: Liver Length: 17.1 cm Gallbladder Wall: 0.2 cm CBD: 0.4 cm Spleen: 9.7 x 4.1 cm Right Kidney: 11.5 x 5.4 x 6.9 cm Left Kidney: 11.8 x 5.8 x 5.8 cm Pancreas: Tail obscured by overlying bowel gas Liver: Increased attenuation Gallbladder: No stones seen Evidence for sonographic Collins's sign: No CBD: wnl Spleen: wnl Right Kidney: No hydronephrosis or masses seen Left Kidney: No hydronephrosis or masses seen Upper IVC: wnl Abd Aorta: wnl The visualized liver is heterogeneously hyperechoic. Evaluation for focal masses suboptimal due to th e heterogeneity. No surrounding ascites. The intrahepatic portion of the IVC and proximal, mid, and d istal abdominal aorta are within normal limits. There is no evidence of cholelithiasis. Common bile duct is unremarkable. The visualized portions of the pancreas are homogenous. Portions of pancreas obscured by overlying bowel gas. The spleen is unremarkable. Kidneys are symmetric and free of hydro nephrosis. No renal lesions are seen. IMPRESSION: Heterogeneous hyperechoic appearance of the liver consistent with diffuse fatty infiltrat ion and/or underlying hepatocellular disease. Patient may benefit with random guided biopsy and/or ul trasound elastography to better evaluate.
[2021-04-22 09:23] LABS: HCT 31.9 % (39.6-50.0); HGB 10.5 g/dL (13.0-17.0); MCH 32.5 pg (27.0-32.0); MCHC 32.9 g/dL (32.0-37.0); MCV 98.8 fL (80.0-97.0); Mean Platelet Volume 8.6 fL (9.5-12.2); Platelet Count 601 X 10*3/uL (140-440); RBC 3.23 X 10*6/uL (4.40-5.60); RDW 13.3 % (11.5-14.5); WBC 24.83 X 10*3/uL (4.50-10.00)
--- NOTE | 2021-04-22 10:26 | P.PN ---
Subjective Progress Note Date: 04/22/21 Principal diagnosis: Left-sided loculated pleural effusion. Past medical history significant for chronic ongoing tobacco abuse smokes about 1-1/2 packs per day, chronic lower back pain with history of fusion of L5 to S1, occasional marijuana use and rare cocaine use. Status post day #4 placement of left-sided pigtail catheter by interventional radiology. Patient was seen in follow-up today 04/22/2021 at his bedside on the fourth floor medical surgical unit. Currently sitting up to the bedside chair, is awake, alert and oriented 3 and is in no acute apparent distress. Left pigtail catheter remains in place to low continuous wall suction -20 cm H2O. No air leak is present. Draining thin serosanguineous drainage with 200 mL output in the last 24 hours. He did receive a fourth dose of alteplase/dornase yesterday pleural instillation. Oxygen saturations are 95% on room air and he is achieving 3000 mL on his incentive spirometry. Pleural fluid cytology results r emain pending. Remains on cefepime and Levaquin for antibiotic coverage, managed by infectious disease. He remains afebrile the last 24 hours. Sputum culture results show positive for mona albicans and was started on Diflucan yesterday. Blood cultures continue to show no growth after 96 hours. Objective - Vital Signs Vital signs: Vital Signs Temp 97.6 F 04/22/21 03:05 Pulse 73 04/22/21 03:05 Resp 16 04/22/21 03:05 BP 128/68 04/22/21 03:05 Pulse Ox 95 04/22/21 03:05 Intake & Output 04/21/21 04/22/21 04/22/21 18:59 06:59 18:59 Output Total 20 Balance -20 Output: Chest Tube Drainage 20 Chest Tube Left Posterior 20 Chest Other: Voiding Method Toilet # Voids 3 4 # Bowel Movements 1 - Exam CONSTITUTIONAL: Sitting up to the bedside chair on the fourth floor medical surgical unit, appears comfortable, cooperative, no apparent acute distress. HEENT: Neck is supple, no JVD, no lymphadenopathy. RESPIRATORY: Lungs sounds essentially clear throughout, diminished to his bilateral bases left greater than right. Respirations are symmetrical and nonlabored. Currently on room air with oxygen saturations 95%. Able to achieve 3000 mL on his incentive spirometry. Strong cough. Left chest pigtail catheter site in place to low continuous wall suction -20 cm H2O. No air leak is present. 150 mL output in the last 24 hours of thin serous drainage. CARDIOVASCULAR: Regular rhythm and rate. S1 and S2 present, negative for S3, gallop or murmur. GASTROINTESTINAL: Abdomen soft, nontender, nondistended. Active bowel sounds present 4 quadrants. Tolerating diet. Passing flatus. No guarding or rigidity. GENITOURINARY: Continues to void. INTEGUMENTARY: Skin is warm and dry with no evidence of clubbing or cyanosis. Dressing is clean, dry and intact to his left chest pigtail catheter site. NEUROLOGIC: Cranial nerves II through XII intact. No focal deficits. MUSKULOSKELETAL: Able to move all extremities, strength equal bilaterally. PSYCHIATRIC: Alert and oriented to person place and time, appropriate affect, intact judgment and insight. - Allied health notes Allied health notes reviewed: nursing - Labs CBC & Chem 7: 04/22/21 06:06 04/21/21 05:40 Labs: Abnormal Lab Results - Last 24 Hours (Table) 04/22/21 Range/Units 06:06 WBC 24.83 H (4.50-10.00) X 10*3/uL RBC 3.23 L (4.40-5.60) X 10*6/uL Hgb 10.5 L (13.0-17.0) g/dL Hct 31.9 L (39.6-50.0) % MCV 98.8 H (80.0-97.0) fL MCH 32.5 H (27.0-32.0) pg Plt Count 601 H (140-440) X 10*3/uL MPV 8.6 L (9.5-12.2) fL Microbiology - Last 24 Hours (Table) 04/18/21 16:32 Gram Stain - Preliminary Pleural Fluid Body Fluid Culture - Preliminary 04/17/21 13:15 Blood Culture - Preliminary Blood No Growth after 96 hours 04/17/21 13:38 Blood Culture - Preliminary Blood No Growth after 96 hours 04/18/21 20:00 Gram Stain - Final Sputum Sputum Culture - Final Mona albicans - Imaging and Cardiology Chest x-ray: report reviewed, image reviewed Assessment and Plan Assessment: 1. Left-sided loculated pleural effusion, status post left-sided pigtail catheter placement by interventional radiology 2. Shortness of breath and left-sided chest pain secondary to above 3. Leukocytosis secondary to above 4 Acute transaminitis, AST 149 and ALT 167 yesterday 04/22/2021 5. Chronic ongoing tobacco dependence 6. Occasional marijuana use 7. Rare cocaine use Plan: 1. We did not instill anymore alteplase/dornase pleural instillation at this time. 2. Continue to encourage use of his incentive spirometry 10 times every hour while awake. 3. Follow culture results. Infectious disease is following the patient and is managing antibiotics. Diflucan was started yesterday for positive sputum c ulture for Mona albicans. 4. Increase activity as tolerated. Out of bed for all meals. 5. Pain control per current when necessary orders. 6. Continue to follow daily chest x-rays. 7. GI and DVT prophylaxis. 8. Left chest pigtail catheter in place, keep connected to low continuous wall suction at -20 cm H2O. May disconnect pigtail catheter from wall suction with ambulation. 9. Cytology of his pleural fluid remains pending. We will continue to follow the cytology results. 10. More recommendations follow based on patient's clinical course. Time with Patient: Greater than 30
[2021-04-22 10:55] LABS: Basophils # (A) 0.04 X 10*3/uL (0.00-0.10); Basophils % (A) 0.2 %; Eosinophils # (A) 0.04 X 10*3/uL (0.04-0.35); Eosinophils % (A) 0.2 %; Lymphocytes # (A) 3.69 X 10*3/uL (0.90-5.00); Lymphocytes % (A) 14.9 %; Monocytes # (A) 2.37 X 10*3/uL (0.20-1.00); Monocytes % (A) 9.5 %; Neutrophils # (A) 18.31 X 10*3/uL (1.80-7.70); Neutrophils % (A) 73.7 %
[2021-04-22] MEDS: LEVOFLOXACIN 750 MG TAB PO SCH (15:35)
[2021-04-22 17:42] LABS: ALT 170 U/L (10-49); AST 95 U/L (14-35); African American GFR (CKD) 131.2 (60.0-200.0); Albumin 2.7 g/dL (3.8-4.9); Albumin/Globulin Ratio 1.17 (1.60-3.17); Alkaline Phosphatase 188 U/L (41-126); BUN/Creat Ratio 19.43 Ratio (12.00-20.00); Blood Urea Nitrogen 13.6 mg/dL (9.0-27.0); Calcium 8.7 mg/dL (8.7-10.3); Carbon Dioxide 20.3 mmol/L (21.6-31.8); Chloride 109 mmol/L (96-109); Globulin 2.3 g/dL (1.6-3.3); Glucose 83 mg/dL (70-110); Non-African American GFR(CKD) 113.2 (60.0-200.0); Potassium 3.6 mmol/L (3.5-5.5); Sodium 142 mmol/L (135-145); Total Bilirubin <0.20 mg/dL (0.30-1.20)
--- NOTE | 2021-04-22 18:27 | P.PN ---
Subjective Progress Note Date: 04/22/21 Principal diagnosis: Empyema left lung Left-sided complicated pneumonia COPD Shortness of breath and chest pain due to above Chronic back pain 08/23/2020, patient seen eval examined during the rounds labs reviewed medications reviewed, no significant fluid recommendation as noted in pleural VAC no air leak is present, denies any chest pain or shortness of breath, computed tomography scan of the chest done just reviewed pleural effusion is almost gone, small pleural peel is present on the left side, 04/21/2021, patient seen and evaluated examined during the rounds labs reviewed medications reviewed care plan discussed, respiratory status remains stable, patient mostly on room air, breathing comfortably, patient has second pleural VAC 550 mL serous fluid is present in pleural VAC, cytology is pending cultures no growth so far, no organisms seen on Gram stain, patient is overall in good spirits, denies any pain has been doing deep breathing exercise incentive spir ometry 04/19/2021, patient seen and evaluated examined, after seen yesterday and examining patient I reviewed the CAT scan patient hadn't have extensive amount of left-sided pleural effusion which was loculated in the form of 2 pockets, discussed with primary service about need of drainage either with a chest tube or VATS or thoracotomy, discussed with thoracic surgery they feel that percutaneous drainage in the form of the small chest tube will be the better initial step, underwent chest tube placement pigtail by IR which tolerated very well patient didn't have much output yesterday but however today significant output noted so far received 1400 mL, Gram stain no organisms seen many polys identified, patient also have been evaluated by infectious disease services has been switched to cephapirin, patient has been getting recombinant alteplase to the chest tube Patient is a 45-year-old with extensive history of smoking and nicotine abuse, patient came into the hospital with sudden onset of chest pain shortness of breath denies any cough or sputum production patient has been having low-grade fever, no history of alcohol consumption, due to severity of pain and decided came into the hospital for further evaluation, patient does smoke one to one and half pack per day. Recently, workup [place] chest x-ray revealed presence of left lower lobe infiltrate and some developing pneumonia on right lower lobe noted as well, computed tomography scan of the chest negative for pulmonary embolism however left-sided pleural effusion seen small with bilateral atelectasis, follow-up chest x-ray continued show a loculated effusion white cell count 35,000 Objective - Vital Signs Vital signs: Vital Signs Temp 98.1 F 04/22/21 14:55 Pulse 64 04/22/21 14:55 Resp 16 04/22/21 14:55 BP 144/71 04/22/21 14:55 Pulse Ox 98 04/22/21 14:55 Intake & Output 04/21/21 04/22/21 04/22/21 18:59 06:59 18:59 Intake Total 1560 Output Total 20 Balance -20 1560 Intake: Oral 1560 Output: Chest Tube Drainage 20 Chest Tube Left Posterior 20 Chest Other: Voiding Method Toilet # Voids 3 4 4 # Bowel Movements 1 - Exam - Constitutional General appearance: average body habitus, cooperative, disheveled - EENT Eyes: abnormal pupil, EOMI Ears: bilateral: normal - Neck Neck: normal ROM Carotids: bilateral: upstroke normal Thyroid: bilateral: normal size - Respiratory Respiratory: bilateral: diminished, left-sided chest tube and pleural VAC - Cardiovascular Rhythm: regular Heart sounds: normal: S1, S2 - Gastrointestinal General gastrointestinal: decreased bowel sounds, soft - Neurologic Neurologic: CNII-XII intact - Musculoskeletal Musculoskeletal: gait normal, generalized weakness, strength equal bilaterally - Psychiatric Psychiatric: A&O x's 3, appropriate affect, intact judgment & insight - Labs CBC & Chem 7: 04/22/21 06:06 04/22/21 06:06 Labs: Abnormal Lab Results - Last 24 Hours (Table) 04/22/21 04/22/21 Range/Units 06:06 06:06 WBC 24.83 H (4.50-10.00) X 10*3/uL RBC 3.23 L (4.40-5.60) X 10*6/uL Hgb 10.5 L (13.0-17.0) g/dL Hct 31.9 L (39.6-50.0) % MCV 98.8 H (80.0-97.0) fL MCH 32.5 H (27.0-32.0) pg Plt Count 601 H (140-440) X 10*3/uL Plt Count Comment INCREASED A MPV 8.6 L (9.5-12.2) fL Immature Gran # 0.38 H (0.00-0.04) X 10*3/uL Neutrophils # 18.31 H (1.80-7.70) X 10*3/uL Monocytes # 2.37 H (0.20-1.00) X 10*3/uL Carbon Dioxide 20.3 L (21.6-31.8) mmol/L Anion Gap 12.70 H (4.00-12.00) mmol/L Total Bilirubin <0.20 L (0.30-1.20) mg/dL AST 95 H (14-35) U/L ALT 170 H (10-49) U/L Alkaline Phosphatase 188 H (41-126) U/L Total Protein 5.0 L (6.2-8.2) g/dL Albumin 2.7 L (3.8-4.9) g/dL Albumin/Globulin Ratio 1.17 L (1.60-3.17) g/dL Microbiology - Last 24 Hours (Table) 04/17/21 13:15 Blood Culture - Preliminary Blood No Growth after 120 hours 04/17/21 13:38 Blood Culture - Preliminary Blood No Growth after 120 hours 04/18/21 16:32 Gram Stain - Preliminary Pleural Fluid Body Fluid Culture - Preliminary Assessment and Plan Assessment: Empyema left lung, status post percutaneous drainage through a pigtail catheter by IR Left-sided complicated pneumonia COPD Leukocytosis due to chronic inflammatory processes of empyema Chronic anemia Thrombocytosis due to chronic implemented process of empyema Substance use with drug screen positive for oxycodone, opiates, tricyclic antidepressant, methamphetamine, cocaine, marijuana Shortness of breath and chest pain due to above Plan: Computed tomography scan of the chest reviewed significant improvement and pleural effusion is seen almost gone patient has some bilateral groundglass at tenuation, will do a follow-up CAT scan as outpatient, left basilar pleural peel is seen, chest tube can be safely removed Continue antibiotics IV Follow-up on cytology and culture reports and results Cardiothoracic surgery also following Do deep breathing exercise incentive spirometry Time with Patient: Greater than 30
--- NOTE | 2021-04-22 19:02 | CT ---
EXAMINATION TYPE: CT chest wo con DATE OF EXAM: 04/22/2021 COMPARISON: 04/17/2021 HISTORY: left loculated pleural effusion CT DLP: 356.6 mGycm Automated exposure control for dose reduction was used. Images obtained from the thoracic inlet to the diaphragm without contrast. There is some patchy linear density in the left lower lobe related to atelectasis. No pneumothorax. T here is mild pulmonary emphysema. There is some mild groundglass interstitial infiltrate in both lung s. Heart size is normal. There is very small pericardial effusion. There are no hilar masses. There i s no mediastinal adenopathy. There is mild pleural thickening left posterior lung base. There is left posterior chest tube noted in good position posteriorly. Thoracic spine is intact. There is 25% wedging of L1 vertebra. Unchanged. IMPRESSION: Left chest tube in good position. There is decrease in the left pleural fluid and the atelectasis lef t lower lobe compared to old exam. No pneumothorax. There is improved aeration right lower lobe and s ignificant clearing of atelectasis right lower lobe compared to old exam. There is some groundglass i nterstitial pulmonary infiltrates increased compared to old exam.
--- NOTE | 2021-04-22 20:06 | PN ---
PROGRESS NOTE DATE OF SERVICE: 04/22/2021. REASON FOR FOLLOWUP: Left-sided empyema. INTERVAL HISTORY: The patient is afebrile. The patient is breathing comfortably. Overall pain and discomfort to the left side of the chest has decreased in intensity. Denies any nausea. No vomiting. No abdominal pain, no diarrhea. PHYSICAL EXAMINATION: Blood pressure 144/71 with a pulse of 54, temperature 98.1. He is 98% on room air. General description is a middle-aged male lying in bed in no distress. Respiratory system: Unlabored breathing, decreased breath sounds in the base, no wheeze. Heart S1, S2. Regular rate and rhythm. Abdomen soft, no tenderness. LABS: Cultures so far negative. White count elevated 24.83. DIAGNOSTIC IMPRESSION AND PLAN: Patient with left-sided loculated fluid status post chest tubes. Culture has been negative so far. Patient is covered with cefepime and Levaquin, to continue while monitoring clinical course closely. Continue supportive care. MMODL / IJN: [id number] /
--- NOTE | 2021-04-22 22:24 | PN ---
PROGRESS NOTE This 45-year-old white male has a chest tube in place on the left side of the chest. CT scan of the chest shows left chest tube in good position, decrease in the left pleural fluid. No pneumothorax. Improved aeration, right lower lobe. Ground-glass pulmonary infiltrates, increased compared to exam. Cardiovascular: S1-S2. Lungs fairly clear. GI soft. Hematology: Negative Homans. Psych: Fair mood and affect. Labs show 98 on room air. Blood pressure 120s to 140s over 70s, respiratory rate 16 to 18, temperature 98, pulse 60s to 70. Cardiovascular: S1, S2. GI soft. Hematology: Negative Homans. White count is 24.83, hemoglobin is 10.5, neutrophils 18. ASSESSMENT: 1. Empyema of the chest. 2. Left-sided complicated pneumonia. 3. Chronic obstructive pulmonary disease. 4. Chronic back pain. 5. Pain in the left lung. 6. Empyema, left lung. 7. Left-sided hyper complicated pneumonia. 8. Chronic obstructive pulmonary disease. 9. Leukocytosis. 10.Chronic anemia. 11.Thrombo . CT scan as mentioned above. Continue on IV antibiotics. Wait for further cultures. Deep breathing, incentive spirometry. Continue IV antibiotics. Prognosis guarded. MMODL / IJN: [id number] /
[2021-04-23] MEDS: CEFEPIME 2 GM in SODIUM CHLORIDE 0.9% 100 ML IVPB SCH ×3 (00:20→16:43)
[2021-04-23] MEDS: oxyCODONE-APAP 10-325MG 1 EACH TAB PO PRN ×4 (05:44→21:54)
--- NOTE | 2021-04-23 07:53 | XR ---
EXAMINATION TYPE: XR chest 1V DATE OF EXAM: 04/23/2021 COMPARISON: 04/22/2021 INDICATION: Left-sided pleural effusion TECHNIQUE: Single frontal view of the chest is obtained. FINDINGS: The heart size is normal. The pulmonary vasculature is normal. There is elevation of the lateral left diaphragm. Catheter is present at the left lung base. There ar e linear lung markings at the left base. No pneumothorax is evident IMPRESSION: 1. Stable appearance left chest catheter. 2. Increased linear lung markings at the left base with elevation lateral left diaphragm. Correlate f or atelectasis.
[2021-04-23] MEDS ORDERED: DORNASE ALFA 5 MG in SODIUM CHLORIDE 0.9% 50 ML IRRIGATION ONE (09:00)
[2021-04-23] MEDS ORDERED: ALTEPLASE 10 MG in SODIUM CHLORIDE 0.9% 50 ML IRRIGATION ONE (09:00)
[2021-04-23 09:20] LABS: Basophils # (A) 0.07 X 10*3/uL (0.00-0.10); Basophils % (A) 0.3 %; Eosinophils # (A) 0.17 X 10*3/uL (0.04-0.35); Eosinophils % (A) 0.7 %; HGB 10.5 g/dL (13.0-17.0); Lymphocytes # (A) 4.56 X 10*3/uL (0.90-5.00); Lymphocytes % (A) 17.6 %; MCH 31.7 pg (27.0-32.0); MCHC 31.8 g/dL (32.0-37.0); MCV 99.7 fL (80.0-97.0); Mean Platelet Volume 8.7 fL (9.5-12.2); Monocytes # (A) 2.31 X 10*3/uL (0.20-1.00); Monocytes % (A) 8.9 %; Neutrophils # (A) 17.94 X 10*3/uL (1.80-7.70); Platelet Count 604 X 10*3/uL (140-440); RBC 3.31 X 10*6/uL (4.40-5.60); RDW 13.4 % (11.5-14.5); WBC 25.97 X 10*3/uL (4.50-10.00)
[2021-04-23] MEDS: FAMOTIDINE 20 MG TAB PO SCH ×2 (09:41→21:54)
[2021-04-23] MEDS: predniSONE 20 MG TAB PO SCH (09:42)
[2021-04-23] MEDS: CYCLOBENZAPRINE 10 MG TAB PO SCH ×2 (09:42→21:54)
[2021-04-23] MEDS: FLUCONAZOLE 100 MG TAB PO SCH (09:42)
[2021-04-23] MEDS: NAPROXEN 250 MG TAB PO SCH ×2 (09:43→16:43)
[2021-04-23] MEDS: ENOXAPARIN 40 MG/0.4 ML SYRINGE SQ SCH (09:46)
[2021-04-23] MEDS: NICOTINE 21MG/24HR PATCH TRANSDERM SCH (09:50)
--- NOTE | 2021-04-23 09:52 | P.PN ---
Subjective Progress Note Date: 04/23/21 Principal diagnosis: Left-sided loculated pleural effusion. Previous medical history of chronic ongoing tobacco abuse, chronic lower back pain with history of fusion of L5 to S1, occasional marijuana use and rare cocaine use. Status post day #5 placement of left-sided pigtail catheter by interventional radiology. The patient was seen and examined this morning sitting up in bed eating breakfast in no acute distress. Continues to complain of chronic pain, but no murmurs, controlled with current medication regimen, denies shortness of breath. Has been ambulating around without difficulty. Left-sided pigtail catheter remains in place, patient has received 4 doses alteplase/dornase. No other new concerns. Objective - Vital Signs Vital signs: Vital Signs Temp 97.5 F L 04/23/21 07:31 Pulse 61 04/23/21 07:31 Resp 16 04/23/21 07:31 BP 128/76 04/23/21 07:31 Pulse Ox 98 04/23/21 07:31 Intake & Output 04/22/21 04/23/21 04/23/21 18:59 06:59 18:59 Intake Total 1560 Balance 1560 Intake: Oral 1560 Other: Voiding Method Toilet # Voids 4 3 - Exam CONSTITUTIONAL: Appears comfortable, cooperative, no acute distress RESPIRATORY: Lungs sounds diminished bilaterally. Respirations even, nonlabored. Currently on room air with oxygen saturation 95%. Able to achieve 3500 mL on incentive spirometry. Strong cough. CARDIOVASCULAR: S1, S2 present. Regular rate and rhythm, sinus rhythm on telemetry. Palpable peripheral pulses bilaterally. GASTROINTESTINAL: Abdomen soft, nontender, nondistended. Active bowel sounds present 4 quadrants. Tolerating diet. GENITOURINARY: Continues to void INTEGUMENTARY: Skin is warm and dry with evidence of good perfusion. NEUROLOGIC: Cranial nerves II through XII intact MUSKULOSKELETAL: Able to move all extremities, strength equal bilaterally, gait normal PSYCHIATRIC: Alert and oriented to person place and time, appropriate affect, intact judgment and insight INVASIVE LINES AND TUBES: Left pigtail catheter present and connected to wall suction, no air leaks present, 50 mL in the last 24 hours - Allied health notes Allied health notes reviewed: nursing - Labs CBC & Chem 7: 04/23/21 05:38 04/22/21 06:06 Labs: Abnormal Lab Results - Last 24 Hours (Table) 04/22/21 04/22/21 04/23/21 Range/Units 06:06 06:06 05:38 WBC 25.97 H (4.50-10.00) X 10*3/uL RBC 3.31 L (4.40-5.60) X 10*6/uL Hgb 10.5 L (13.0-17.0) g/dL Hct 33.0 L (39.6-50.0) % MCV 99.7 H (80.0-97.0) fL MCHC 31.8 L (32.0-37.0) g/dL Plt Count 604 H (140-440) X 10*3/uL Plt Count Comment INCREASED A MPV 8.7 L (9.5-12.2) fL Immature Gran # 0.38 H 0.92 H (0.00-0.04) X 10*3/uL Neutrophils # 18.31 H 17.94 H (1.80-7.70) X 10*3/uL Monocytes # 2.37 H 2.31 H (0.20-1.00) X 10*3/uL Carbon Dioxide 20.3 L (21.6-31.8) mmol/L Anion Gap 12.70 H (4.00-12.00) mmol/L Total Bilirubin <0.20 L (0.30-1.20) mg/dL AST 95 H (14-35) U/L ALT 170 H (10-49) U/L Alkaline Phosphatase 188 H (41-126) U/L Total Protein 5.0 L (6.2-8.2) g/dL Albumin 2.7 L (3.8-4.9) g/dL Albumin/Globulin Ratio 1.17 L (1.60-3.17) g/dL Microbiology - Last 24 Hours (Table) 04/17/21 13:15 Blood Culture - Preliminary Blood No Growth after 120 hours 04/17/21 13:38 Blood Culture - Preliminary Blood No Growth after 120 hours - Imaging and Cardiology Chest x-ray: report reviewed, image reviewed CT scan - chest: report reviewed, image reviewed Assessment and Plan Assessment: 1. Left-sided loculated pleural effusion, status post left-sided pigtail catheter placement by interventional radiology 2. Shortness of breath and left-sided chest pain secondary to above 3. Leukocytosis secondary to above 4 Acute transaminitis 5. Chronic ongoing tobacco dependence 6. Occasional marijuana use 7. Rare cocaine use Plan: 1. Will instill fifth dose alteplase/dornase today, after drainage potentially may discontinue pigtail catheter this afternoon 2. Continue to encourage use of his incentive spirometry 10 times every hour while awake. 3. Antibiotics per infectious disease 4. Increase activity as tolerated. Out of bed for all meals. 5. Pain control per current when necessary orders. 6. Continue to follow daily chest x-rays. 7. GI and DVT prophylaxis. 8. More recommendations follow based on patient's clinical course. Time with Patient: Greater than 30
[2021-04-23 09:57] LABS: ALT 126 U/L (10-49); AST 52 U/L (14-35); African American GFR (CKD) 131.2 (60.0-200.0); Albumin 2.4 g/dL (3.8-4.9); Albumin/Globulin Ratio 1.04 (1.60-3.17); Alkaline Phosphatase 161 U/L (41-126); Calcium 8.6 mg/dL (8.7-10.3); Carbon Dioxide 20.7 mmol/L (21.6-31.8); Chloride 107 mmol/L (96-109); Globulin 2.3 g/dL (1.6-3.3); Glucose 75 mg/dL (70-110); Non-African American GFR(CKD) 113.2 (60.0-200.0); Potassium 3.8 mmol/L (3.5-5.5); Sodium 140 mmol/L (135-145); Total Bilirubin <0.20 mg/dL (0.30-1.20); Total Protein 4.7 g/dL (6.2-8.2)
[2021-04-23] MEDS: IPRATROPIUM-ALBUTEROL 3 ML NEB INHALATION SCH ×3 (11:12→20:03)
[2021-04-23 14:19] VITALS: BMI 25.0
[2021-04-23] MEDS: LEVOFLOXACIN 750 MG TAB PO SCH (14:38)
[2021-04-23] MEDS ORDERED: tiZANidine 4 MG TAB PO PRN (14:58)
[2021-04-23] MEDS: LIDOCAINE 5% PATCH TOPICAL SCH (15:38)
--- NOTE | 2021-04-23 18:32 | PN ---
PROGRESS NOTE DATE OF SERVICE: 04/23/2021 REASON FOR FOLLOWUP: Left-sided pleural effusion, question of empyema. INTERVAL HISTORY: The patient is afebrile. The patient is currently breathing comfortably. Has been complaining of pain to the left side of the chest after removal of the chest tube. Denies any nausea. No vomiting, no abdominal pain and no diarrhea. PHYSICAL EXAMINATION: Blood pressure 108/70 with a pulse of 63, temperature 97.9. He is 97% on room air. General description is a middle-aged male up in the bed in no distress. RESPIRATORY SYSTEM: Unlabored breathing. Decreased breath sounds at the bases. No wheeze. HEART: S1, S2. Regular rate and rhythm. ABDOMEN: Soft. No tenderness. LABS: Chest x-ray and CT did show decrease in amount of fluid in the left lung. Hemoglobin is 7.5, white count 25.97, creatinine 0.78. DIAGNOSTIC IMPRESSION AND PLAN: Patient with left-sided pleural effusion concerning for empyema, status post chest tube placement. However, culture remains negative. Patient is empirically covered with cefepime and Levaquin. The patient did have Mona in the sputum, more likely a colonizer . Continue with the current medication. White count remains elevated; could be related to the steroids. We will monitor closely and repeat his inflammatory markers tomorrow. Continue supportive care. MMODL / IJN: [id number] /
--- NOTE | 2021-04-23 19:26 | P.PN ---
Subjective Progress Note Date: 04/23/21 Principal diagnosis: Empyema left lung Left-sided complicated pneumonia COPD Shortness of breath and chest pain due to above Chronic back pain 04/23/2021, patient seen eval examined during the rounds labs reviewed medications reviewed care plan discussed, respiratory status remained stable, less shortness of breath, no significant output has been noted through the chest tube, patient is status post fourth toes of alteplase 04/22/2021, patient seen eval examined during the rounds labs reviewed medications reviewed, no significant fluid recommendation as noted in pleural VAC no air leak is present, denies any chest pain or shortness of breath, computed tomography scan of the chest done just reviewed pleural effusion is almost gone, small pleural peel is present on the left side, 04/21/2021, patient seen and evaluated examined during the rounds labs reviewed medications reviewed care plan discussed, respiratory status remains stable, patient mostly on room air, breathing comfortably, patient has second pleural VAC 550 mL serous fluid is present in pleural VAC, cytology is pending cultures no growth so far, no organisms seen on Gram stain, patient is overall in good spirits, denies any pain has been doing deep breathing exercise incentive spirometry 04/19/2021, patient seen and evaluated examined, after seen yesterday and examining patient I reviewed the CAT scan patient hadn't have extensive amount of left-sided pleural effusion which was loculated in the form of 2 pockets, discussed with primary service about need of drainage either with a chest tube or VATS or thoracotomy, discussed with thoracic surgery they feel that percutaneous drainage in the form of the small chest tube will be the better initial step, underwent chest tube placement pigtail by IR which tolerated very well patient didn't have much output yesterday but however today significant output noted so far received 1400 mL, Gram stain no organisms seen many polys identified, patient also have been evaluated by infectious disease services has been switched to cephapirin, patient has been getting recombinant alteplase to the chest tube Patient is a 45-year-old with extensive history of smoking and nicotine abuse, patient came into the hospital with sudden onset of chest pain shortness of breath denies any cough or sputum production patient has been having low-grade fever, no history of alcohol consumption, due to severity of pain and decided came into the hospital for further evaluation, patient does smoke one to one and half pack per day. Recently, workup [facility] chest x-ray revealed presence of left lower lobe infiltrate and some developing pneumonia on right lower lobe noted as well, computed tomography scan of the chest negative for pulmonary embolism however left-sided pleural effusion seen small with bilateral atelectasis, follow-up chest x-ray continued show a loculated effusion white cell count 35,000 Objective - Vital Signs Vital signs: Vital Signs Temp 97.9 F 04/23/21 14:43 Pulse 66 04/23/21 14:43 Resp 18 04/23/21 14:43 BP 108/70 04/23/21 14:43 Pulse Ox 97 04/23/21 14:43 Intake & Output 04/23/21 04/23/21 04/24/21 06:59 18:59 06:59 Weight 88.451 kg Other: Voiding Method Toilet Toilet # Voids 3 3 # Bowel Movements 1 - Exam - Constitutional General appearance: average body habitus, cooperative, disheveled - EENT Eyes: abnormal pupil, EOMI Ears: bilateral: normal - Neck Neck: normal ROM Carotids: bilateral: upstroke normal Thyroid: bilateral: normal size - Respiratory Respiratory: bilateral: diminished, left-sided chest tube and pleural VAC - Cardiovascular Rhythm: regular Heart sounds: normal: S1, S2 - Gastrointestinal General gastrointestinal: decreased bowel sounds, soft - Neurologic Neurologic: CNII-XII intact - Musculoskeletal Musculoskeletal: gait normal, generalized weakness, strength equal bilaterally - Psychiatric Psychiatric: A&O x's 3, appropriate affect, intact judgment & insight - Labs CBC & Chem 7: 04/23/21 05:38 04/23/21 05:39 Labs: Abnormal Lab Results - Last 24 Hours (Table) 04/23/21 04/23/21 Range/Units 05:38 05:39 WBC 25.97 H (4.50-10.00) X 10*3/uL RBC 3.31 L (4.40-5.60) X 10*6/uL Hgb 10.5 L (13.0-17.0) g/dL Hct 33.0 L (39.6-50.0) % MCV 99.7 H (80.0-97.0) fL MCHC 31.8 L (32.0-37.0) g/dL Plt Count 604 H (140-440) X 10*3/uL MPV 8.7 L (9.5-12.2) fL Immature Gran # 0.92 H (0.00-0.04) X 10*3/uL Neutrophils # 17.94 H (1.80-7.70) X 10*3/uL Monocytes # 2.31 H (0.20-1.00) X 10*3/uL Carbon Dioxide 20.7 L (21.6-31.8) mmol/L Anion Gap 12.30 H (4.00-12.00) mmol/L Calcium 8.6 L (8.7-10.3) mg/dL Total Bilirubin <0.20 L (0.30-1.20) mg/dL AST 52 H (14-35) U/L ALT 126 H (10-49) U/L Alkaline Phosphatase 161 H (41-126) U/L Total Protein 4.7 L (6.2-8.2) g/dL Albumin 2.4 L (3.8-4.9) g/dL Albumin/Globulin Ratio 1.04 L (1.60-3.17) g/dL Microbiology - Last 24 Hours (Table) 04/17/21 13:15 Blood Culture - Final Blood No Growth after 144 hours 04/17/21 13:38 Blood Culture - Final Blood No Growth after 144 hours Assessment and Plan Assessment: Empyema left lung, status post percutaneous drainage through a pigtail catheter by IR and intermittent doses of alteplase Left-sided complicated pneumonia COPD Leukocytosis due to chronic inflammatory processes of empyema Chronic anemia Thrombocytosis due to chronic implemented process of empyema Substance use with drug screen positive for oxycodone, opiates, tricyclic antidepressant, methamphetamine, cocaine, marijuana Shortness of breath and chest pain due to above Plan: Agree with removal of her chest tube and discharge planning on oral antibiotics as outpatient follow-up Computed tomography scan of the chest reviewed significant improvement and pleural effusion is seen almost gone patient has some bilateral groundglass attenuation, will do a follow-up CAT scan as outpatient, left basilar pleural peel is seen, chest tube can be safely removed Continue antibiotics IV Follow-up on cytology and culture reports and results Cardiothoracic surgery also following Do deep breathing exercise incentive spirometry Time with Patient: Greater than 30
[2021-04-23] MEDS: CALCIUM CARBONATE 500 MG CHEWABLE PO PRN (21:54)
[2021-04-24] MEDS: NAPROXEN 250 MG TAB PO SCH ×3 (03:00→16:53)
[2021-04-24] MEDS: CEFEPIME 2 GM in SODIUM CHLORIDE 0.9% 100 ML IVPB SCH (03:01)
[2021-04-24] MEDS: oxyCODONE-APAP 10-325MG 1 EACH TAB PO PRN ×3 (05:12→15:39)
--- NOTE | 2021-04-24 07:20 | XR ---
EXAMINATION TYPE: XR chest 2V DATE OF EXAM: 04/24/2021 COMPARISON: 04/23/2021 HISTORY: History of empyema TECHNIQUE: Frontal and lateral views of the chest are obtained. FINDINGS: Left basilar pleural catheter has been removed. No evidence for pneumothorax. Stable pleural-parenchy mal density left lower lobe. The cardiac silhouette size is within normal limits. The osseous structures are grossly intact. IMPRESSION: 1. Left basilar pleural catheter has been removed. No evidence for pneumothorax. Stable pleural-pare nchymal density left lower lobe.
[2021-04-24] MEDS: CYCLOBENZAPRINE 10 MG TAB PO SCH (07:55)
[2021-04-24] MEDS: FLUCONAZOLE 100 MG TAB PO SCH (07:55)
[2021-04-24] MEDS: predniSONE 20 MG TAB PO SCH (07:55)
[2021-04-24] MEDS: FAMOTIDINE 20 MG TAB PO SCH (07:55)
[2021-04-24] MEDS: NICOTINE 21MG/24HR PATCH TRANSDERM SCH (07:56)
[2021-04-24] MEDS: LIDOCAINE 5% PATCH TOPICAL SCH (07:57)
[2021-04-24] MEDS: ENOXAPARIN 40 MG/0.4 ML SYRINGE SQ SCH (07:57)
[2021-04-24] MEDS: IPRATROPIUM-ALBUTEROL 3 ML NEB INHALATION SCH ×3 (08:54→16:38)
--- NOTE | 2021-04-24 09:38 | P.PN ---
Subjective Progress Note Date: 04/24/21 Principal diagnosis: Left-sided loculated pleural effusion. Previous medical history of chronic ongoing tobacco abuse, chronic lower back pain with history of fusion of L5 to S1, occasional marijuana use and rare cocaine use. Status post day #6 placement of left-sided pigtail catheter by interventional radiology. The patient was seen and examined this morning sitting up in bed in no acute distress. Continues to complain of chronic pain, controlled with current medication regimen, denies shortness of breath. Has been ambulating around without difficulty. Left-sided pigtail catheter removed yesterday, patient states he felt immediate relief. He has been in the shower already this morning and feels much better. Objective - Vital Signs Vital signs: Vital Signs Temp 97.6 F 04/24/21 02:00 Pulse 71 04/24/21 02:00 Resp 16 04/24/21 02:00 BP 120/74 04/24/21 02:00 Pulse Ox 95 04/24/21 02:00 Intake & Output 04/23/21 04/24/21 04/24/21 18:59 06:59 18:59 Weight 88.451 kg Other: Voiding Method Toilet Toilet # Voids 3 3 # Bowel Movements 1 1 - Exam CONSTITUTIONAL: Appears comfortable, cooperative, no acute distress RESPIRATORY: Lungs sounds diminished bilaterally. Respirations even, nonlabored. Currently on room air with oxygen saturation 95%. Able to achieve 3500 mL on incentive spirometry. Strong cough. CARDIOVASCULAR: S1, S2 present. Regular rate and rhythm. Palpable peripheral pulses bilaterally. GASTROINTESTINAL: Abdomen soft, nontender, nondistended. Active bowel sounds present 4 quadrants. Tolerating diet. GENITOURINARY: Continues to void INTEGUMENTARY: Skin is warm and dry with evidence of good perfusion. NEUROLOGIC: Cranial nerves II through XII intact MUSKULOSKELETAL: Able to move all extremities, strength equal bilaterally, gait normal PSYCHIATRIC: Alert and oriented to person place and time, appropriate affect, intact judgment and insight - Allied health notes Allied health notes reviewed: nursing - Labs CBC & Chem 7: 04/23/21 05:38 04/23/21 05:39 Labs: Abnormal Lab Results - Last 24 Hours (Table) 04/23/21 Range/Units 05:39 Carbon Dioxide 20.7 L (21.6-31.8) mmol/L Anion Gap 12.30 H (4.00-12.00) mmol/L Calcium 8.6 L (8.7-10.3) mg/dL Total Bilirubin <0.20 L (0.30-1.20) mg/dL AST 52 H (14-35) U/L ALT 126 H (10-49) U/L Alkaline Phosphatase 161 H (41-126) U/L Total Protein 4.7 L (6.2-8.2) g/dL Albumin 2.4 L (3.8-4.9) g/dL Albumin/Globulin Ratio 1.04 L (1.60-3.17) g/dL Microbiology - Last 24 Hours (Table) 04/17/21 13:15 Blood Culture - Final Blood No Growth after 144 hours 04/17/21 13:38 Blood Culture - Final Blood No Growth after 144 hours - Imaging and Cardiology Chest x-ray: report reviewed, image reviewed Assessment and Plan Assessment: 1. Left-sided loculated pleural effusion, status post left-sided pigtail catheter placement by interventional radiology 2. Shortness of breath and left-sided chest pain secondary to above 3. Leukocytosis secondary to above 4 Acute transaminitis 5. Chronic ongoing tobacco dependence 6. Occasional marijuana use 7. Rare cocaine use Plan: 1. Pigtail catheter discontinued yesterday 2. Continue to encourage use of his incentive spirometry 10 times every hour while awake. 3. Antibiotics per infectious disease 4. Increase activity as tolerated. Out of bed for all meals. 5. Pain control per current when necessary orders. 6. Continue to follow daily chest x-rays. 7. GI and DVT prophylaxis. 8. Patient may be discharged home from our standpoint when okay with other services 9. We'll see again on an as-needed basis. Please call us with any further questions Time with Patient: Greater than 30
[2021-04-24] MEDS ORDERED: CEFEPIME 2 GM in SODIUM CHLORIDE 0.9% 100 ML IVPB SCH (11:00)
--- NOTE | 2021-04-24 11:48 | P.PN ---
Subjective Progress Note Date: 04/24/21 Principal diagnosis: Empyema left lung Left-sided complicated pneumonia COPD Shortness of breath and chest pain due to above Chronic back pain 04/24/2021, patient seen and evaluated examined during the rounds labs reviewed medications reviewed care plan discussed, respiratory status remains stable denies any chest pain or shortness of breath breathing comfortably, chest tube is out, chest x-ray from today reviewed and stable left lower lobe infiltrate and subsegmental atelectasis, 04/23/2021, patient seen eval examined during the rounds labs reviewed medications reviewed care plan discussed, respiratory status remained stable, less shortness of breath, no significant output has been noted through the chest tube, patient is status post fourth toes of alteplase 04/22/2021, patient seen eval examined during the rounds labs reviewed medications reviewed, no significant fluid recommendation as noted in pleural VAC no air leak is present, denies any chest pain or shortness of breath, computed tomography scan of the chest done just reviewed pleural effusion is almost gone, small pleural peel is present on the left side, 04/21/2021, patient seen and evaluated examined during the rounds labs reviewed medications reviewed care plan discussed, respiratory status remains stable, patient mostly on room air, breathing comfortably, patient has second pleural VAC 550 mL serous fluid is present in pleural VAC, cytology is pending cultures no growth so far, no organisms seen on Gram stain, patient is overall in good spirits, denies any pain has been doing deep breathing exercise incentive spirometry 04/19/2021, patient seen and evaluated examined, after seen yesterday and examining patient I reviewed the CAT scan patient hadn't have extensive amount of left-sided pleural effusion which was loculated in the form of 2 pockets, discussed with primary service about need of drainage either with a chest tube or VATS or thoracotomy, discussed with thoracic surgery they feel that percutaneous drainage in the form of the small chest tube will be the better initial step, underwent chest tube placement pigtail by IR which tolerated very well patient didn't have much output yesterday but however today significant output noted so far received 1400 mL, Gram stain no organisms seen many polys identified, patient also have been evaluated by infectious disease services has been switched to cephapirin, patient has been getting recombinant alteplase to the chest tube Patient is a 45-year-old with extensive history of smoking and nicotine abuse, patient came into the hospital with sudden onset of chest pain shortness of breath denies any cough or sputum production patient has been having low-grade fever, no history of alcohol consumption, due to severity of pain and decided came into the hospital for further evaluation, patient does smoke one to one and half pack per day. Recently, workup [facility] chest x-ray revealed presence of left lower lobe infiltrate and some developing pneumonia on right lower lobe noted as well, computed tomography scan of the chest negative for pulmonary embolism however left-sided pleural effusion seen small with bilateral atelectasis, follow-up chest x-ray continued show a loculated effusion white cell count 35,000 Objective - Vital Signs Vital signs: Vital Signs Temp 97.6 F 04/24/21 02:00 Pulse 71 04/24/21 02:00 Resp 16 04/24/21 02:00 BP 120/74 04/24/21 02:00 Pulse Ox 95 04/24/21 02:00 Intake & Output 04/23/21 04/24/21 04/24/21 18:59 06:59 18:59 Weight 88.451 kg Other: Voiding Method Toilet Toilet # Voids 3 3 # Bowel Movements 1 1 - Exam - Constitutional General appearance: average body habitus, cooperative, disheveled - EENT Eyes: abnormal pupil, EOMI Ears: bilateral: normal - Neck Neck: normal ROM Carotids: bilateral: upstroke normal Thyroid: bilateral: normal size - Respiratory Respiratory: bilateral: diminished, left-sided chest tube and pleural VAC - Cardiovascular Rhythm: regular Heart sounds: normal: S1, S2 - Gastrointestinal General gastrointestinal: decreased bowel sounds, soft - Neurologic Neurologic: CNII-XII intact - Musculoskeletal Musculoskeletal: gait normal, generalized weakness, strength equal bilaterally - Psychiatric Psychiatric: A&O x's 3, appropriate affect, intact judgment & insight - Labs CBC & Chem 7: 04/23/21 05:38 04/23/21 05:39 Labs: Microbiology - Last 24 Hours (Table) 04/17/21 13:15 Blood Culture - Final Blood No Growth after 144 hours 04/17/21 13:38 Blood Culture - Final Blood No Growth after 144 hours Assessment and Plan Assessment: Empyema left lung, status post percutaneous drainage through a pigtail catheter by IR and intermittent doses of alteplase Left-sided complicated pneumonia COPD Leukocytosis due to chronic inflammatory processes of empyema Chronic anemia Thrombocytosis due to chronic implemented process of empyema Substance use with drug screen positive for oxycodone, opiates, tricyclic antidepressant, methamphetamine, cocaine, marijuana Shortness of breath and chest pain due to above Plan: Recommend oral antibiotics In case patient goes on oral antibiotics would recommend follow-up in outpatient Do deep breathing exercise incentive spirometry Time with Patient: Greater than 30
--- NOTE | 2021-04-24 13:56 | PN ---
PROGRESS NOTE DATE OF SERVICE: 04/24/2021 REASON FOR FOLLOWUP: Left-sided loculated fluid and pneumonia. INTERVAL HISTORY: The patient is afebrile. The patient is currently breathing comfortably on room air. The patient denies having any chest pain or worsening cough. No vomiting. No abdominal pain or diarrhea. PHYSICAL EXAMINATION: Blood pressure 120/74 with a pulse of 71, temperature 97.6. He is 95% on room air. General description is a middle-aged male up in the bed in no distress. RESPIRATORY SYSTEM: Unlabored breathing. Decreased intensity of breath sounds. No wheeze. HEART: S1, S2. Regular rate and rhythm. ABDOMEN: Soft. No tenderness. LABS: No new labs have been obtained today. The patient's pleural fluid culture is so far negative. Sputum was Mona. DIAGNOSTIC IMPRESSION AND PLAN: Patient with left-sided effusion, status post chest tube. Cultures have been negative. Blood culture has been negative. Patient has elevated white count. However, overall improvement with the drainage. Plan at this time is to finish therapy with oral Levaquin and close outpatient followup. MMODL / IJN: [id number] /
[2021-04-24] MEDS: LEVOFLOXACIN 750 MG TAB PO SCH (15:49)
[2021-04-24 16:39] VITALS: BP 111/62; PULSE 100; RESP 16; TEMP 97.8
--- NOTE | 2021-04-25 12:27 | DS ---
DISCHARGE SUMMARY DISCHARGE MEDICATIONS: 1. Levaquin 750 mg p.o. daily. 2. Percocet 10/325 q.i.d. Diet as tolerated. CONDITION: Stable. PROGNOSIS: Guarded. DISCHARGE DIAGNOSIS: 1. Cocaine abuse. 2. Methamphetamine abuse. 3. Empyema of the left lung requiring chest tube. 4. Community-acquired pneumonia, left lower lobe. 5. History of nicotine addiction. The patient was admitted with empyema of the lung. Chest tube was ordered. Patient continued with current treatment. Chest tube drainage of the empyema was done. Broad- spectrum antibiotics were given. Switched to Levaquin on discharge per Dr. Means. He will follow up as an outpatient. Check CBC in the next 1-2 days and monitor his oxygen level. He is currently 92 to 94 on room air. Demanding to go home. Nicotine cessation was ordered. MMCHELSEAL / MAINEN: [id number] /
--- NOTE | 2021-04-28 09:35 | CT ---
EXAMINATION TYPE: CT chest tube insertion DATE OF EXAM: 04/18/2021 COMPARISON: None HISTORY: Left chest tube CT DLP: 645 mGycm The procedure is discussed with the patient, the risks, complications, benefits and alternatives, wer e discussed and any questions were answered. Informed consent was obtained. The patient is placed p naheed on the CT table, prepped and draped in the usual sterile fashion. Utilizing a 22-gauge left pleural space was achieved there was placement of an old 0.018 guidewire. T here is conversion to 0.035 system, serial dilation to 8.5 Turkmen and placement 8 Turkmen drainage cat heter within the pleural space. Sample sent to pathology for analysis. All elements of maximal barri er and sterile technique were utilized. The patient remained stable throughout the procedure with no immediate postprocedural complication. IMPRESSION: 1. Successful CT guided chest tube insertion
== END 2021-04-24 18:00 | disposition home or self-care (01) | DRG 177 ==
LOC: EC 11:45 → 4SSUR 14:00
PROVIDERS: ADMIT Family Medicine; ATTEND Family Medicine
PROC: 0W9B30Z Drainage of Left Pleural Cavity with Drainage Device, Percutaneous Approach (ICD-10-PCS; principal; 2021-04-17)
DX: J86.9 Pyothorax without fistula (principal); J15.6 Pneumonia due to other Gram-negative bacteria; J91.8 Pleural effusion in other conditions classified elsewhere; J44.0 Chronic obstructive pulmonary disease with (acute) lower respiratory infection; Z20.822 Contact with and (suspected) exposure to COVID-19; Z98.1 Arthrodesis status; Z88.0 Allergy status to penicillin; Z82.5 Family history of asthma and other chronic lower respiratory diseases; Z82.49 Family history of ischemic heart disease and other diseases of the circulatory system; R74.01 Elevation of levels of liver transaminase levels; F17.210 Nicotine dependence, cigarettes, uncomplicated; F14.10 Cocaine abuse, uncomplicated; F12.90 Cannabis use, unspecified, uncomplicated; E78.00 Pure hypercholesterolemia, unspecified; F15.10 Other stimulant abuse, uncomplicated; G89.29 Other chronic pain; D53.9 Nutritional anemia, unspecified; M54.59 Other low back pain
CPT/HCPCS: 32551; 36415; 71045; 71046; 71250; 71275; 76700; 80048; 80053; 80306; 82150; 82945; 83605; 83735; 84145; 84157; 84484; 85025; 85379; 85610; 85730; 86140; 87040; 87070; 87102; 87116; 87205; 87206; 87635; 88108; 88305; 93005; 96374; 99285

== ENCOUNTER → 2021-05-08 | Outpatient (CLI) | payer OTHER ==
--- NOTE | 2021-05-09 09:03 | CT ---
EXAMINATION TYPE: CT chest wo con DATE OF EXAM: 05/08/2021 COMPARISON: 04/22/2021 and 04/17/2021 HISTORY: 45-year-old male CHEST PAIN TECHNIQUE: Contiguous axial scanning of the chest without IV contrast. Coronal and sagittal reconstru ctions performed. CT DLP: 433.1 mGycm Automated exposure control for dose reduction was used. FINDINGS: Heart normal size without pericardial effusion. Borderline ectasia aortic root at 3.5 cm. Otherwise, air and normal caliber with conventional arch ve ssel branching anatomy. Scattered nonenlarged mediastinal lymph nodes. No thoracic lymph adenopathy by CT size criteria. Mild scattered emphysematous change. Mild patchy groundglass changes in the lower lungs. These are re sidual densities, improving from 04/22/2021. Focal pleural parenchymal opacities at the left base, four of these with masslike or nodular configur ation. These measure 3.6 cm posteriorly, 1.6 cm inferior lingula, and up to 8 mm along the left heart margin. Also plaque-like pleural-based thickening posteromedial left base wedging of the millimeters. No residual pleural effusion. All of these areas is suspected to represent pleural parenchymal scarri ng and areas of rounded atelectasis. Prominent ingested debris distending the stomach. Visualized upper abdomen shows no gross abnormality . Bones: No osseous destructive process. IMPRESSION: 1. COPD WITH MILD EMPHYSEMA. THE PREVIOUS GROUNDGLASS INFILTRATES SHOW IMPROVEMENT. MINIMAL RESIDUAL PATCHES OF GROUNDGLASS REMAINS IN THE LOWER LUNGS. PROBABLY RESOLVING COVID PNEUMONIA. CLINICALLY COR RELATE. 2. NO RESIDUAL LEFT PLEURAL EFFUSION. HOWEVER, THERE IS NODULAR AND LOBULATED PLEURAL PARENCHYMAL [place] AT THE LEFT BASE AND SOME PLAQUE-LIKE THICKENING. FOCAL OPACITIES MEASURE UP TO 3.6 CM. SUSPECTE D PLEURAL PARENCHYMAL SCARRING AND AREAS OF ROUNDED ATELECTASIS. SIX-MONTH FOLLOW-UP CT TO REASSESS.
== END | disposition home or self-care (01) ==
LOC: RADCTMAIN 17:51
PROVIDERS: ATTEND Family Medicine
DX: J43.9 Emphysema, unspecified (principal); R91.8 Other nonspecific abnormal finding of lung field
CPT/HCPCS: 71250